=== PATIENT | male | born 1975 | race African-American/Black ===

== ENCOUNTER 2018-06-10 10:00 | Inpatient (IN) | payer MEDICAID ==
[~2018-06-10] VITALS: Ht 180.3 cm; Wt 121.3 kg
[2018-06-10] MEDS ORDERED: ONDANSETRON HCL 4 MG/2 ML VIAL IV ONE (10:15)
[2018-06-10 11:08] LABS: Basophils # (auto) 0.1 uL; Basophils % (auto) 1.1 % (0.0-2.0); Eosinophils # (auto) 0.3 uL; Eosinophils % (auto) 4.9 % (0.0-7.0); Hematocrit 26.6 % (41.0-53.0); Hemoglobin 8.7 g/dL (13.5-17.5); Lymphocytes # (auto) 0.8 uL; Lymphocytes % (auto) 13.8 % (10.0-50.0); Mean Corpuscular Hemoglobin 26.8 pg (28.0-32.0); Mean Corpuscular Hgb Conc. 32.7 g/dL (32.0-36.0); Mean Corpuscular Volume 82.1 fL (80.0-100.0); Monocytes # (auto) 0.7 uL; Monocytes % (auto) 11.5 % (0.0-12.0); Neutrophils % (auto) 68.7 % (37.0-80.0); Platelet Count (auto) 250 10^3/uL (140-450); Red Blood Cells 3.24 10^6/uL (4.5-5.90); Red Cell Distribution Width 13.6 % (11.8-14.3); White Blood Cell 5.9 10^3/uL (4.4-10.8)
[2018-06-10 11:24] LABS: Albumin 2.7 g/dL (3.4-5.0); Potassium 4.7 mmol/L (3.5-5.1)
[2018-06-10 11:29] LABS: Urine Bacteria FEW /hpf (None Seen); Urine Blood 1+ /uL (Negative); Urine Specific Gravity 1.005 (1.001-1.035); Urine WBC 2 /hpf (0 - 3)
[2018-06-10] MEDS ORDERED: cloNIDine HCL 0.1 MG TAB PO ONE (11:30)
[2018-06-10 11:32] LABS: Bilirubin, Total 0.3 mg/dL (0.2-1.0); Total Protein 6.9 g/dL (6.4-8.2)
[2018-06-10 11:36] LABS: Calcium 5.3 mg/dL (8.5-10.1)
[2018-06-10 11:37] LABS: BUN/Creatinine Ratio 6.3
[2018-06-10 11:41] LABS: Alcohol, Urine < 3.0 mg/dL (0-5); Amphetamine Screen, Urine NEGATIVE (NEGATIVE); Barbiturate Scree,Urine NEGATIVE (NEGATIVE); Benzodiazephine Screen, Urine NEGATIVE (NEGATIVE); Cannabinoid Screen, Urine NEGATIVE (NEGATIVE); Cocaine Screen, Urine NEGATIVE (NEGATIVE); Opiate Scree,Urine NEGATIVE (NEGATIVE); Phencyclidine Screen, Urine NEGATIVE (NEGATIVE)
[2018-06-10] MEDS ORDERED: ONDANSETRON HCL 4 MG/2 ML VIAL IV PRN (13:15)
[2018-06-10] MEDS ORDERED: DEXTROSE (50%) 50ML SYRG IV PRN (13:15)
[2018-06-10] MEDS ORDERED: MORPHINE SULF INJ 2 MG/ML SYRINGE 1ML IV PRN ×2 (13:15)
[2018-06-10] MEDS ORDERED: NITROGLYCERIN 0.4 MG SL TAB SL PRN (13:15)
[2018-06-10] MEDS ORDERED: LABETALOL HCL 5 MG/ML ML 20ML VIAL IV PRN (13:15)
[2018-06-10] MEDS ORDERED: TRIAMTERENE/HCTZ 37.5/25 MG CAP/TAB PO ONE ×2 (13:15→13:30)
[2018-06-10] MEDS ORDERED: METOPROLOL TARTRATE 25 MG TAB PO ONE ×2 (13:15→13:30)
[2018-06-10] MEDS ORDERED: ACETAMINOPHEN 325 MG TAB PO PRN (13:15)
[2018-06-10] MEDS ORDERED: DOCUSATE SOD 100 MG CAP PO PRN (13:15)
[2018-06-10] MEDS ORDERED: CALCIUM GLUC 4.65meq/50ml D5AE 50 ML IV ONE (13:15)
[2018-06-10] MEDS ORDERED: TEMAZEPAM 15 MG CAP PO PRN (13:15)
[2018-06-10] MEDS ORDERED: amLODIPine BESYLATE 5 MG TAB PO ONE ×2 (13:15→13:30)
[2018-06-10] MEDS ORDERED: HYDROcodone-ACET 5/325MG TAB PO PRN (13:15)
[2018-06-10] MEDS ORDERED: MULTIPLE VITAMIN TAB PO ONE (13:30)
[2018-06-10] MEDS ORDERED: cefTRIAXone 1GM/10ml IVPUSH 10 ML IV ONE (14:00)
[2018-06-10] MEDS: SODIUM CHLOR 0.9% PF (SALINE LOCK) 10ML VIAL/SYR IV SCH ×2 (14:18→22:02)
[2018-06-10 16:20] LABS: Protein, Urine 370.3 mg/dL (0.0-11.9)
[2018-06-10] MEDS: cloNIDine HCL 0.1 MG TAB PO PRN ×2 (16:48→20:40)
[2018-06-10] MEDS: ACCU-CHEK COMFORT CURVE STRIP VI SCH ×2 (17:31→22:02)
[2018-06-10] MEDS: InsuLIN REG 1unit/0.01ml Soln (100units/ml) SC SCH ×2 (17:31→22:02)
[2018-06-10] MEDS: Glucerna Carbsteady SHAKE Vanilla 8oz PO SCH (18:00)
[2018-06-10 18:04] VITALS: BP 199/101
[2018-06-10 19:19] LABS: Albumin 2.7 g/dL (3.4-5.0); Potassium 4.6 mmol/L (3.5-5.1)
[2018-06-10 19:30] LABS: BUN/Creatinine Ratio 6.4; Bilirubin, Total 0.3 mg/dL (0.2-1.0); Total Protein 6.9 g/dL (6.4-8.2)
[2018-06-10 19:39] LABS: Calcium 5.6 mg/dL (8.5-10.1)
[2018-06-10 21:43] VITALS: BP 167/85
[2018-06-10] MEDS: METOPROLOL TARTRATE 25 MG TAB PO SCH (22:02)
[2018-06-11] VITALS (8 sets, daily range): BP systolic 135–208; BP diastolic 71–91
[2018-06-11] MEDS: cloNIDine HCL 0.1 MG TAB PO PRN ×2 (05:04→16:55)
[2018-06-11] MEDS: SODIUM CHLOR 0.9% PF (SALINE LOCK) 10ML VIAL/SYR IV SCH ×3 (06:09→22:04)
[2018-06-11] MEDS: InsuLIN REG 1unit/0.01ml Soln (100units/ml) SC SCH ×4 (06:44→22:05)
[2018-06-11] MEDS: ACCU-CHEK COMFORT CURVE STRIP VI SCH ×4 (06:44→22:04)
[2018-06-11] MEDS: Glucerna Carbsteady SHAKE Vanilla 8oz PO SCH ×3 (08:06→18:12)
[2018-06-11 09:58] LABS: Basophils # (auto) 0 uL; Eosinophils # (auto) 0.2 uL; Hemoglobin 7.9 g/dL (13.5-17.5); Monocytes # (auto) 0.4 uL; Nucleated Red Blood Cells % 0.1 %; Red Cell Distribution Width 13.4 % (11.8-14.3)
[2018-06-11] MEDS ORDERED: amLODIPine BESYLATE 5 MG TAB PO SCH (10:00)
[2018-06-11] MEDS ORDERED: TRIAMTERENE/HCTZ 37.5/25 MG CAP/TAB PO SCH (10:00)
[2018-06-11 10:01] LABS: Basophils % (auto) 0.7 % (0.0-2.0); Eosinophils % (auto) 4.8 % (0.0-7.0); Hematocrit 23.6 % (41.0-53.0); Lymphocytes % (auto) 19.9 % (10.0-50.0); Mean Corpuscular Hemoglobin 26.6 pg (28.0-32.0); Mean Corpuscular Hgb Conc. 33.3 g/dL (32.0-36.0); Mean Corpuscular Volume 79.8 fL (80.0-100.0); Monocytes % (auto) 9.1 % (0.0-12.0); Neutrophils # (auto) 3.1 uL; Neutrophils % (auto) 65.5 % (37.0-80.0); Platelet Count (auto) 230 10^3/uL (140-450); Red Blood Cells 2.95 10^6/uL (4.5-5.90); White Blood Cell 4.8 10^3/uL (4.4-10.8)
[2018-06-11] MEDS: METOPROLOL TARTRATE 25 MG TAB PO SCH ×2 (10:04→21:33)
[2018-06-11] MEDS: MULTIPLE VITAMIN TAB PO SCH (10:07)
[2018-06-11] MEDS: cefTRIAXone 1GM/10ml IVPUSH 10 ML IV SCH (10:08)
[2018-06-11 10:17] LABS: Albumin 2.5 g/dL (3.4-5.0); BUN/Creatinine Ratio 6.2; Bilirubin, Total 0.3 mg/dL (0.2-1.0); Potassium 4.6 mmol/L (3.5-5.1); Total Protein 6.3 g/dL (6.4-8.2)
[2018-06-11 10:22] LABS: Calcium 5.6 mg/dL (8.5-10.1)
[2018-06-11] MEDS ORDERED: EPOETIN ALFA 10,000 UNIT/1 ML VIAL IV ONE (15:45)
[2018-06-11] MEDS: hydrALAZINE HCL 20 MG/ML VL IV PRN (19:00)
[2018-06-12] VITALS (8 sets, daily range): BP systolic 144–163; BP diastolic 69–79
[2018-06-12] MEDS: cloNIDine HCL 0.1 MG TAB PO PRN (00:20)
[2018-06-12] MEDS: SODIUM CHLOR 0.9% PF (SALINE LOCK) 10ML VIAL/SYR IV SCH ×3 (06:27→21:26)
[2018-06-12] MEDS: ACCU-CHEK COMFORT CURVE STRIP VI SCH ×4 (06:27→21:27)
[2018-06-12] MEDS: InsuLIN REG 1unit/0.01ml Soln (100units/ml) SC SCH ×4 (06:28→21:46)
[2018-06-12] MEDS: cefTRIAXone 1GM/10ml IVPUSH 10 ML IV SCH (09:08)
[2018-06-12] MEDS: METOPROLOL TARTRATE 25 MG TAB PO SCH ×2 (09:09→21:27)
[2018-06-12] MEDS: NIFEdipine ER 30 MG TAB PO SCH (09:09)
[2018-06-12] MEDS: MULTIPLE VITAMIN TAB PO SCH (09:09)
[2018-06-12] MEDS: Glucerna Carbsteady SHAKE Vanilla 8oz PO SCH ×3 (09:10→17:51)
[2018-06-12 10:38] LABS: Basophils # (auto) 0 uL; Basophils % (auto) 0.6 % (0.0-2.0); Hematocrit 23.2 % (41.0-53.0); Lymphocytes # (auto) 0.7 uL; Monocytes # (auto) 0.5 uL; Neutrophils # (auto) 3.3 uL; Red Blood Cells 2.92 10^6/uL (4.5-5.90); Red Cell Distribution Width 13.4 % (11.8-14.3); White Blood Cell 4.7 10^3/uL (4.4-10.8)
[2018-06-12 10:40] LABS: Eosinophils # (auto) 0.1 uL; Eosinophils % (auto) 3.2 % (0.0-7.0); Hemoglobin 7.9 g/dL (13.5-17.5); Lymphocytes % (auto) 14.7 % (10.0-50.0); Mean Corpuscular Hemoglobin 27.2 pg (28.0-32.0); Mean Corpuscular Hgb Conc. 34.2 g/dL (32.0-36.0); Mean Corpuscular Volume 79.6 fL (80.0-100.0); Monocytes % (auto) 10.8 % (0.0-12.0); Neutrophils % (auto) 70.7 % (37.0-80.0); Platelet Count (auto) 214 10^3/uL (140-450)
[2018-06-12] MEDS: hydrALAZINE HCL 20 MG/ML VL IV PRN (12:03)
[2018-06-12 12:43] LABS: Calcium 6.5 mg/dL (8.5-10.1); Potassium 4.3 mmol/L (3.5-5.1)
[2018-06-12 12:52] LABS: BUN/Creatinine Ratio 5.6
[2018-06-13 05:00] VITALS: BP 159/73
[2018-06-13] MEDS: ACCU-CHEK COMFORT CURVE STRIP VI SCH (06:09)
[2018-06-13] MEDS: SODIUM CHLOR 0.9% PF (SALINE LOCK) 10ML VIAL/SYR IV SCH (06:09)
[2018-06-13] MEDS: InsuLIN REG 1unit/0.01ml Soln (100units/ml) SC SCH (06:09)
[2018-06-13 08:30] VITALS: BP 160/71
[2018-06-13 09:58] LABS: Hepatitis B Surface Antigen Negative (Negative); Hepatitis C Antibody Negative (Negative)
[2018-06-13] MEDS ORDERED: EPOETIN ALFA 10,000 UNIT/1 ML VIAL IV ONE (10:00)
[2018-06-13] MEDS ORDERED: SODIUM CHL 0.9% 1000 ML BAG XX ONE (10:00)
[2018-06-13] MEDS: MULTIPLE VITAMIN TAB PO SCH (10:01)
[2018-06-13] MEDS: METOPROLOL TARTRATE 25 MG TAB PO SCH (10:02)
[2018-06-13] MEDS: NIFEdipine ER 30 MG TAB PO SCH (10:03)
[2018-06-13] MEDS: Glucerna Carbsteady SHAKE Vanilla 8oz PO SCH (10:09)
[2018-06-13 12:42] VITALS: BP 151/84
[2018-06-13 14:13] VITALS: BP 151/84
== END 2018-06-13 15:55 | disposition home or self-care (01) | DRG 469 ==
LOC: ER 10:00 → EDBD 10:00 → TELE 10:01 → TELE-WESTW 18:29
PROVIDERS: ADMIT Internal Medicine; ATTEND Internal Medicine Pulmonary Disease
PROC: 5A1D70Z Performance of Urinary Filtration, Intermittent, Less than 6 Hours Per Day (ICD-10-PCS; principal; 2018-06-11)
DX: N17.9 Acute kidney failure, unspecified (principal); E11.21 Type 2 diabetes mellitus with diabetic nephropathy; E44.0 Moderate protein-calorie malnutrition; I13.11 Hypertensive heart and chronic kidney disease without heart failure, with stage 5 chronic kidney disease, or end stage renal disease; E83.51 Hypocalcemia; K52.9 Noninfective gastroenteritis and colitis, unspecified; E11.22 Type 2 diabetes mellitus with diabetic chronic kidney disease; E87.1 Hypo-osmolality and hyponatremia; N39.0 Urinary tract infection, site not specified; N18.6 End stage renal disease; E66.9 Obesity, unspecified; D63.1 Anemia in chronic kidney disease; Z68.37 Body mass index [BMI] 37.0-37.9, adult; Z83.3 Family history of diabetes mellitus; Z91.14 Patient's other noncompliance with medication regimen; Z91.15 Patient's noncompliance with renal dialysis
CPT/HCPCS: 36415; 71046; 74176; 76775; 80048; 80053; 80307; 81001; 82150; 82570; 82962; 83036; 83690; 83880; 83970; 84156; 84300; 84443; 84484; 85025; 86803; 87086; 87340; 90935; 93005; 93306; 96365; 96375; 99291; J0610; J0696; J0885; J1815; J2405

== ENCOUNTER 2018-11-19 02:21 | Emergency (ER) | payer MEDICAID ==
[~2018-11-19] VITALS: Ht 180.3 cm; Wt 96.6 kg
[2018-11-19] MEDS ORDERED: cloNIDine HCL 0.1 MG TAB PO ONE (02:45)
[2018-11-19 04:12] LABS: Basophils # (auto) 0 uL; Basophils % (auto) 0.7 % (0.0-2.0); Eosinophils # (auto) 0.1 uL; Eosinophils % (auto) 5.4 % (0.0-7.0); Hematocrit 28.8 % (41.0-53.0); Hemoglobin 9.5 g/dL (13.5-17.5); Lymphocytes # (auto) 0.5 uL; Lymphocytes % (auto) 17.5 % (10.0-50.0); Mean Corpuscular Hgb Conc. 33.1 g/dL (32.0-36.0); Mean Corpuscular Volume 84.6 fL (80.0-100.0); Monocytes # (auto) 0.4 uL; Monocytes % (auto) 15.3 % (0.0-12.0); Neutrophils # (auto) 1.7 uL; Neutrophils % (auto) 61.1 % (37.0-80.0); Nucleated Red Blood Cells % 0.1 %; Platelet Count (auto) 238 10^3/uL (140-450); White Blood Cell 2.7 10^3/uL (4.4-10.8)
[2018-11-19 04:31] LABS: INR 0.98 (0.9-1.15); Partial Thromboplastin Time 26.5 sec (23.78-33.04); Prothrombin Time 10.5 sec (9.27-12.13)
[2018-11-19 04:47] LABS: Albumin 3.4 g/dL (3.4-5.0); BUN/Creatinine Ratio 2.4; Calcium 8.6 mg/dL (8.5-10.1); Magnesium 2.8 mg/dL (1.6-2.6); Potassium 4.5 mmol/L (3.5-5.1)
[2018-11-19 04:52] LABS: Bilirubin, Total 0.4 mg/dL (0.2-1.0); Total Protein 7.4 g/dL (6.4-8.2)
[2018-11-19 06:58] VITALS: BP 197/93
== END 2018-11-19 09:26 | disposition left against medical advice (07) ==
LOC: ER 02:22
DX: E11.22 Type 2 diabetes mellitus with diabetic chronic kidney disease (principal); I12.0 Hypertensive chronic kidney disease with stage 5 chronic kidney disease or end stage renal disease; N18.6 End stage renal disease; Z99.2 Dependence on renal dialysis; F17.210 Nicotine dependence, cigarettes, uncomplicated
CPT/HCPCS: 36415; 71046; 80053; 83735; 83880; 84484; 85025; 85379; 85610; 85730; 93005

== ENCOUNTER 2019-08-07 07:45 | Inpatient (IN) | payer MEDICAID ==
[~2019-08-07] VITALS: Ht 180.3 cm; Wt 82.6 kg
[2019-08-07 08:14] LABS: Basophils # (auto) 0 uL; Basophils % (auto) 0.6 % (0.0-2.0); Eosinophils # (auto) 0.1 uL; Eosinophils % (auto) 2.5 % (0.0-7.0); Hematocrit 25.8 % (41.0-53.0); Hemoglobin 8.6 g/dL (13.5-17.5); Lymphocytes # (auto) 0.6 uL; Lymphocytes % (auto) 13.6 % (10.0-50.0); Mean Corpuscular Hemoglobin 29.6 pg (28.0-32.0); Mean Corpuscular Hgb Conc. 33.5 g/dL (32.0-36.0); Mean Corpuscular Volume 88.4 fL (80.0-100.0); Monocytes # (auto) 0.4 uL; Monocytes % (auto) 9.4 % (0.0-12.0); Neutrophils # (auto) 3.5 uL; Neutrophils % (auto) 73.9 % (37.0-80.0); Nucleated Red Blood Cells % 0.1 %; Platelet Count (auto) 192 10^3/uL (140-450); Red Blood Cells 2.92 10^6/uL (4.5-5.90); Red Cell Distribution Width 15.4 % (11.8-14.3); White Blood Cell 4.7 10^3/uL (4.4-10.8)
[2019-08-07 08:24] LABS: Albumin 3.8 g/dL (3.4-5.0); Calcium 8.3 mg/dL (8.5-10.1)
[2019-08-07 08:29] LABS: BUN/Creatinine Ratio 5.1; Bilirubin, Total 0.5 mg/dL (0.2-1.0); Total Protein 7.6 g/dL (6.4-8.2)
[2019-08-07] MEDS ORDERED: cloNIDine HCL 0.1 MG TAB PO ONE (08:30)
[2019-08-07 08:37] LABS: Potassium 6.5 mmol/L (3.5-5.1)
[2019-08-07] MEDS ORDERED: ALBUTEROL SULF 2.5 MG/0.5ML(0.5%) NEB SOLN HHN ONE (08:45)
[2019-08-07] MEDS ORDERED: SODIUM BICARBONATE 8.4 % INJ 50ML VIAL IV ONE (08:45)
[2019-08-07] MEDS ORDERED: CALCIUM GLUC 4.65meq/50ml D5AE 50 ML IV ONE (08:45)
[2019-08-07] MEDS ORDERED: SODIUM CHL 0.9% 1000 ML BAG XX ONE (09:45)
[2019-08-07] MEDS ORDERED: PROMETHAZINE HCL 25 MG/ML 1ML IV PRN (10:00)
[2019-08-07] MEDS ORDERED: MORPHINE SULF INJ 2 MG/ML SYRINGE 1ML IV PRN (10:00)
[2019-08-07] MEDS ORDERED: traMADol HCL 50 MG TAB PO PRN (10:00)
[2019-08-07] MEDS ORDERED: ASPirin 81 mg TAB PO SCH (10:00)
[2019-08-07] MEDS ORDERED: DEXTROSE (50%) 50ML SYRG IV PRN (10:00)
[2019-08-07] MEDS ORDERED: LACTULOSE 20Gm/30ML SOLN PO PRN (10:00)
[2019-08-07] MEDS ORDERED: ENOXAPARIN SOD 30 MG/0.3 ML SYRINGE SC SCH (10:00)
[2019-08-07] MEDS ORDERED: NITROGLYCERIN 0.4 MG SL TAB SL PRN (10:00)
[2019-08-07] MEDS ORDERED: CARVEDILOL 3.125 MG TAB PO SCH (10:00)
[2019-08-07] MEDS ORDERED: PANTOPRAZOLE 40 MG TAB PO SCH (10:00)
[2019-08-07] MEDS ORDERED: TEMAZEPAM 15 MG CAP PO PRN (10:00)
[2019-08-07] MEDS ORDERED: NITROGLYCERIN 0.2MG/HR TOPICAL PATCH TD SCH (10:00)
[2019-08-07] MEDS ORDERED: ACETAMINOPHEN 500 MG TAB PO PRN (10:00)
[2019-08-07] MEDS ORDERED: FUROSEMIDE 40 MG/4 ML VIAL IV SCH (10:00)
[2019-08-07] MEDS ORDERED: hydrALAZINE HCL 20 MG/ML VL IV PRN (10:30)
[2019-08-07] MEDS ORDERED: ACCU-CHEK COMFORT CURVE STRIP VI SCH (11:30)
[2019-08-07] MEDS ORDERED: InsuLIN REG 1unit/0.01ml Soln (100units/ml) SC SCH (11:30)
[2019-08-07 14:01] VITALS: BP 207/101
[2019-08-07] MEDS ORDERED: EPOETIN ALFA 4,000 UNIT/ML VL SC ONE (21:00)
== END 2019-08-07 15:08 | disposition left against medical advice (07) | DRG 190 ==
LOC: EDBD 07:45 → ER 07:55 → TELE 07:56
PROVIDERS: ADMIT Internal Medicine; ATTEND Internal Medicine
PROC: 5A1D70Z Performance of Urinary Filtration, Intermittent, Less than 6 Hours Per Day (ICD-10-PCS; principal; 2019-08-07)
DX: I21.4 Non-ST elevation (NSTEMI) myocardial infarction (principal); E11.22 Type 2 diabetes mellitus with diabetic chronic kidney disease; E87.70 Fluid overload, unspecified; E87.5 Hyperkalemia; I12.0 Hypertensive chronic kidney disease with stage 5 chronic kidney disease or end stage renal disease; D63.1 Anemia in chronic kidney disease; I16.0 Hypertensive urgency; E87.8 Other disorders of electrolyte and fluid balance, not elsewhere classified; N18.6 End stage renal disease; F17.210 Nicotine dependence, cigarettes, uncomplicated; Z82.49 Family history of ischemic heart disease and other diseases of the circulatory system; Z91.19 Patient's noncompliance with other medical treatment and regimen; Z83.3 Family history of diabetes mellitus; Z99.2 Dependence on renal dialysis; Z79.84 Long term (current) use of oral hypoglycemic drugs
CPT/HCPCS: 36415; 71045; 80053; 82550; 83036; 83880; 84484; 85025; 85652; 90935; 93005; 94644; G0378; J0610; J1642

== ENCOUNTER 2019-08-11 03:52 | Inpatient (IN) | payer MEDICAID ==
[~2019-08-11] VITALS: Ht 188 cm; Wt 81.4 kg
[2019-08-11 05:48] LABS: Basophils # (auto) 0 uL; Basophils % (auto) 0.4 % (0.0-2.0); Eosinophils # (auto) 0.2 uL; Eosinophils % (auto) 2.5 % (0.0-7.0); Hematocrit 23.5 % (41.0-53.0); Hemoglobin 7.9 g/dL (13.5-17.5); Lymphocytes # (auto) 0.7 uL; Lymphocytes % (auto) 10.7 % (10.0-50.0); Mean Corpuscular Hemoglobin 30.1 pg (28.0-32.0); Mean Corpuscular Hgb Conc. 33.5 g/dL (32.0-36.0); Mean Corpuscular Volume 89.8 fL (80.0-100.0); Monocytes # (auto) 0.5 uL; Monocytes % (auto) 7.2 % (0.0-12.0); Neutrophils % (auto) 79.2 % (37.0-80.0); Nucleated Red Blood Cells % 0.1 %; Platelet Count (auto) 171 10^3/uL (140-450); Red Blood Cells 2.62 10^6/uL (4.5-5.90); Red Cell Distribution Width 15.7 % (11.8-14.3); White Blood Cell 6.3 10^3/uL (4.4-10.8)
[2019-08-11 06:03] LABS: INR 1.01 (0.9-1.15); Partial Thromboplastin Time 27.1 sec (23.64-32.05)
[2019-08-11 06:14] LABS: Albumin 3.6 g/dL (3.4-5.0); Calcium 7.7 mg/dL (8.5-10.1)
[2019-08-11 06:24] LABS: Bilirubin, Total 0.5 mg/dL (0.2-1.0); Total Protein 7.3 g/dL (6.4-8.2)
[2019-08-11 06:25] LABS: BUN/Creatinine Ratio 5.1
[2019-08-11 06:27] LABS: Potassium 5.8 mmol/L (3.5-5.1)
[2019-08-11] MEDS ORDERED: ONDANSETRON HCL 4 MG/2 ML VIAL IV PRN (07:00)
[2019-08-11] MEDS ORDERED: ACETAMINOPHEN 325 MG TAB PO PRN (07:00)
[2019-08-11] MEDS ORDERED: DEXTROSE (50%) 50ML SYRG IV PRN (07:00)
[2019-08-11] MEDS ORDERED: DOCUSATE SOD 100 MG CAP PO PRN (07:00)
[2019-08-11] MEDS ORDERED: HYDROcodone-ACET 5/325MG TAB PO PRN (07:00)
[2019-08-11] MEDS ORDERED: cloNIDine HCL 0.1 MG TAB PO ONE (07:30)
[2019-08-11] MEDS: ACCU-CHEK COMFORT CURVE STRIP VI SCH ×4 (08:09→20:00)
[2019-08-11] MEDS: InsuLIN REG 1unit/0.01ml Soln (100units/ml) SC SCH ×4 (08:10→20:00)
[2019-08-11] MEDS ORDERED: SODIUM CHL 0.9% 1000 ML BAG XX ONE (10:00)
[2019-08-11] MEDS: CARVEDILOL 12.5 MG TAB PO SCH ×2 (10:00→21:54)
[2019-08-11 12:00] VITALS: BP 199/99
[2019-08-11 14:12] VITALS: BP 214/99
[2019-08-11] MEDS: LABETALOL HCL 5 MG/ML ML 20ML VIAL IV PRN (14:18)
[2019-08-11] MEDS ORDERED: amLODIPine BESYLATE 5 MG TAB PO ONE (14:30)
[2019-08-11] MEDS: cloNIDine HCL 0.1 MG TAB PO SCH ×3 (16:35→22:00)
[2019-08-11 17:00] VITALS: BP 156/74
[2019-08-11 21:00] VITALS: BP 179/80
[2019-08-11] MEDS ORDERED: EPOETIN ALFA 10,000 UNIT/1 ML VIAL SC ONE (21:00)
[2019-08-12] MEDS: ACCU-CHEK COMFORT CURVE STRIP VI SCH ×6 (00:20→19:53)
[2019-08-12] MEDS: InsuLIN REG 1unit/0.01ml Soln (100units/ml) SC SCH ×6 (04:00→19:53)
[2019-08-12 04:30] VITALS: BP 186/86
[2019-08-12] MEDS: cloNIDine HCL 0.1 MG TAB PO SCH ×3 (05:11→21:48)
[2019-08-12 07:32] LABS: Basophils # (auto) 0 uL; Eosinophils # (auto) 0.1 uL; Lymphocytes # (auto) 0.6 uL; Mean Corpuscular Hemoglobin 29.7 pg (28.0-32.0); Mean Corpuscular Hgb Conc. 33.4 g/dL (32.0-36.0); Monocytes # (auto) 0.4 uL; Red Blood Cells 2.81 10^6/uL (4.5-5.90); White Blood Cell 4.2 10^3/uL (4.4-10.8)
[2019-08-12 07:34] LABS: Basophils % (auto) 0.9 % (0.0-2.0); Eosinophils % (auto) 3.2 % (0.0-7.0); Hemoglobin 8.4 g/dL (13.5-17.5); Lymphocytes % (auto) 15.2 % (10.0-50.0); Monocytes % (auto) 9.8 % (0.0-12.0); Neutrophils % (auto) 70.9 % (37.0-80.0); Nucleated Red Blood Cells % 0.1 %; Platelet Count (auto) 176 10^3/uL (140-450); Red Cell Distribution Width 15.3 % (11.8-14.3)
[2019-08-12 07:50] LABS: BUN/Creatinine Ratio 4.7; Calcium 7.8 mg/dL (8.5-10.1)
[2019-08-12 07:52] LABS: Potassium 5.7 mmol/L (3.5-5.1)
[2019-08-12 08:00] VITALS: BP 190/88
--- NOTE | 2019-08-12 08:05 | NUR ---
DR LOZANO PAGED FOR CRITICAL VALUES OF POTASSIUM 5.7 AND CREATININE OF 14.8. INFORMED THAT I WOULD NEED TO RE-PAGE THE [facility] AT 9:00 AM BY PBX. WILL RE-PAGE AT 9:00 AM.
[2019-08-12 08:30] VITALS: BP 190/88
--- NOTE | 2019-08-12 08:33 | NUR ---
DR REAVES AT THE NURSING STATION. INFORMED HIM ABOUT THE CRITICAL VALUES ON THE PREVIOUS NOTE. HE INFORMED ME THAT HE WOULD WRITE ORDERS
--- NOTE | 2019-08-12 08:44 | NUR ---
PATIENT WAS TRANSFERRED TO [facility] FOR FURTHER CARE THIS WAS PREVIOUSLY THEIR PATIENT. CONTACTED [facility] WHO WAS ALREADY AWARE. THEY ARE ESTABLISHING PROVIDER AND WILL CALL ME BACK FOR CRITICAL VALUES
[2019-08-12] MEDS ORDERED: CALCIUM GLUC 4.65meq/50ml D5AE 50 ML IV ONE (08:45)
[2019-08-12] MEDS ORDERED: InsuLIN REG 1unit/0.01ml Soln (100units/ml) IV ONE (08:45)
[2019-08-12] MEDS ORDERED: SODIUM BICARBONATE 8.4 % INJ 50ML VIAL IV ONE (08:45)
[2019-08-12] MEDS ORDERED: DEXTROSE (50%) 50ML SYRG IV ONE (08:45)
[2019-08-12] MEDS: amLODIPine BESYLATE 5 MG TAB PO SCH (09:45)
[2019-08-12] MEDS: CARVEDILOL 12.5 MG TAB PO SCH ×2 (09:45→21:48)
[2019-08-12] MEDS ORDERED: amLODIPine BESYLATE 5 MG TAB PO SCH (10:00)
[2019-08-12] MEDS: LABETALOL HCL 5 MG/ML ML 20ML VIAL IV PRN (12:14)
[2019-08-12 12:30] VITALS: BP 168/72
[2019-08-12] MEDS ORDERED: SODIUM ZIRCONIUM CYCL 10 GM PAK PO ONE (16:30)
[2019-08-12 16:56] VITALS: BP 158/85
[2019-08-12 18:26] LABS: BUN/Creatinine Ratio 5.2; Calcium 7.7 mg/dL (8.5-10.1)
[2019-08-12 18:31] LABS: Potassium 5.8 mmol/L (3.5-5.1)
--- NOTE | 2019-08-12 18:33 | NUR ---
CRITICAL VALUES OF POTASSIUM AND CREATININE RECEIVED. DR LOZANO PAGED TO REPORT RESULTS. WAITING FOR RETURN CALL FROM
[2019-08-12 22:00] VITALS: BP 160/81
[2019-08-13] MEDS: InsuLIN REG 1unit/0.01ml Soln (100units/ml) SC SCH ×3 (04:00→08:00)
[2019-08-13] MEDS: ACCU-CHEK COMFORT CURVE STRIP VI SCH ×3 (04:00→08:11)
[2019-08-13] MEDS: cloNIDine HCL 0.1 MG TAB PO SCH (04:30)
[2019-08-13 05:00] VITALS: BP 186/82
[2019-08-13 05:54] LABS: Basophils # (auto) 0 uL; Basophils % (auto) 0.8 % (0.0-2.0); Eosinophils # (auto) 0.1 uL; Hematocrit 22.7 % (41.0-53.0); Hemoglobin 7.7 g/dL (13.5-17.5); Lymphocytes # (auto) 0.7 uL; Mean Corpuscular Hemoglobin 29.9 pg (28.0-32.0); Mean Corpuscular Hgb Conc. 33.9 g/dL (32.0-36.0); Mean Corpuscular Volume 88.1 fL (80.0-100.0); Monocytes # (auto) 0.5 uL; Monocytes % (auto) 13.8 % (0.0-12.0); Neutrophils # (auto) 2.1 uL; Neutrophils % (auto) 61.4 % (37.0-80.0); Platelet Count (auto) 160 10^3/uL (140-450); Red Blood Cells 2.57 10^6/uL (4.5-5.90); Red Cell Distribution Width 15.2 % (11.8-14.3); White Blood Cell 3.5 10^3/uL (4.4-10.8)
[2019-08-13 06:18] LABS: Calcium 7.5 mg/dL (8.5-10.1); Potassium 5.4 mmol/L (3.5-5.1)
[2019-08-13 06:20] LABS: BUN/Creatinine Ratio 5.3
[2019-08-13] MEDS ORDERED: SODIUM CHL 0.9% 1000 ML BAG XX ONE (07:00)
[2019-08-13 08:00] VITALS: BP 194/85
[2019-08-13 09:00] VITALS: BP 194/85
[2019-08-13] MEDS ORDERED: SODIUM ZIRCONIUM CYCL 10 GM PAK PO ONE (09:00)
[2019-08-13] MEDS: CARVEDILOL 12.5 MG TAB PO SCH (11:09)
[2019-08-13] MEDS: amLODIPine BESYLATE 5 MG TAB PO SCH (11:10)
--- NOTE | 2019-08-13 12:37 | NUR ---
PATIENT DISCHARGED HOME. ALL IV ACCESS DISCONTINUED. TELEMETRY REMOVED AND RETURNED TO TELEMETRY DEPARTMENT. ALL DISCHARGE INSTRUCTIONS GIVEN. ALL DISCHARGE PAPERWORK SIGNED
[2019-08-13] MEDS ORDERED: EPOETIN ALFA 4,000 UNIT/ML VL SC ONE (21:00)
== END 2019-08-13 13:11 | disposition home or self-care (01) | DRG 194 ==
LOC: EDBD 03:52 → ER 03:53 → TELE 03:54 → TELE-CENTR 09:51
PROVIDERS: ADMIT Hospitalist; ATTEND Internal Medicine
PROC: 5A1D70Z Performance of Urinary Filtration, Intermittent, Less than 6 Hours Per Day (ICD-10-PCS; 2019-08-11)
PROC: 5A1D70Z Performance of Urinary Filtration, Intermittent, Less than 6 Hours Per Day (ICD-10-PCS; principal; 2019-08-13)
DX: I13.2 Hypertensive heart and chronic kidney disease with heart failure and with stage 5 chronic kidney disease, or end stage renal disease (principal); I21.4 Non-ST elevation (NSTEMI) myocardial infarction; E11.21 Type 2 diabetes mellitus with diabetic nephropathy; E87.5 Hyperkalemia; I16.0 Hypertensive urgency; I50.31 Acute diastolic (congestive) heart failure; N18.6 End stage renal disease; E11.22 Type 2 diabetes mellitus with diabetic chronic kidney disease; D63.1 Anemia in chronic kidney disease; R06.03 Acute respiratory distress; F17.210 Nicotine dependence, cigarettes, uncomplicated; Z82.49 Family history of ischemic heart disease and other diseases of the circulatory system; Z79.899 Other long term (current) drug therapy; Z91.19 Patient's noncompliance with other medical treatment and regimen; Z99.2 Dependence on renal dialysis; Z83.3 Family history of diabetes mellitus; Z91.15 Patient's noncompliance with renal dialysis
CPT/HCPCS: 36415; 71045; 80048; 80053; 82306; 82962; 83036; 83735; 83880; 83970; 84100; 84484; 85025; 85610; 85730; 90935; 93005; 96374; G0378; J0610; J0885; J1642; J1815

== ENCOUNTER 2020-10-23 18:25 | Emergency (ER) | payer MEDICAID ==
[~2020-10-23] VITALS: Ht 180.3 cm; Wt 86.2 kg
[2020-10-23 20:37] VITALS: BP 166/75
[2020-10-23 21:11] LABS: Basophils # (auto) 0 10 ^3/uL (0-0.2); Basophils % (auto) 0.7 % (0.0-2.0); Eosinophils # (auto) 0.2 10 ^3/uL (0-0.8); Eosinophils % (auto) 3.6 % (0.0-7.0); Hematocrit 34.6 % (41.0-53.0); Hemoglobin 11.6 g/dL (13.5-17.5); Lymphocytes % (auto) 23.2 % (10.0-50.0); Mean Corpuscular Hemoglobin 29.5 pg (28.0-32.0); Mean Corpuscular Hgb Conc. 33.5 g/dL (32.0-36.0); Mean Corpuscular Volume 88.2 fL (80.0-100.0); Monocytes # (auto) 0.5 10 ^3/uL (0-1.3); Monocytes % (auto) 10.9 % (0.0-12.0); Neutrophils # (auto) 2.7 10 ^3/uL (1.6-8.6); Neutrophils % (auto) 61.6 % (37.0-80.0); Nucleated Red Blood Cells % 0.2 %; Platelet Count (auto) 198 10^3/uL (140-450); Red Blood Cells 3.93 10^6/uL (4.5-5.90); Red Cell Distribution Width 13.9 % (11.8-14.3); White Blood Cell 4.3 10^3/uL (4.4-10.8)
[2020-10-23 21:37] LABS: Albumin 3.5 g/dL (3.4-5.0); BUN/Creatinine Ratio 4.6; Bilirubin, Total 0.3 mg/dL (0.2-1.0); Calcium 8.3 mg/dL (8.5-10.1); Total Protein 8.2 g/dL (6.4-8.2)
[2020-10-23 21:54] LABS: Potassium 6.1 mmol/L (3.5-5.1)
== END 2020-10-24 00:24 | disposition left against medical advice (07) ==
LOC: ER 18:25
DX: R53.1 Weakness (principal); E11.22 Type 2 diabetes mellitus with diabetic chronic kidney disease; I12.0 Hypertensive chronic kidney disease with stage 5 chronic kidney disease or end stage renal disease; N18.6 End stage renal disease
CPT/HCPCS: 36415; 70450; 80053; 83735; 84484; 85025; 93005

== ENCOUNTER 2021-06-18 15:47 | Inpatient (IN) | payer MEDICAID ==
[~2021-06-18] VITALS: Ht 182.9 cm; Wt 68.0 kg
[2021-06-18 16:18] LABS: Basophils # (auto) 0 10 ^3/uL (0-0.2); Basophils % (auto) 0.3 % (0.0-2.0); Eosinophils # (auto) 0.1 10 ^3/uL (0-0.8); Eosinophils % (auto) 0.7 % (0.0-7.0); Hematocrit 42.1 % (41.0-53.0); Hemoglobin 13.5 g/dL (13.5-17.5); Lymphocytes # (auto) 0.6 10 ^3/uL (0.4-5.4); Lymphocytes % (auto) 8.3 % (10.0-50.0); Mean Corpuscular Hemoglobin 27.5 pg (28.0-32.0); Mean Corpuscular Hgb Conc. 32.2 g/dL (32.0-36.0); Mean Corpuscular Volume 85.6 fL (80.0-100.0); Monocytes # (auto) 0.6 10 ^3/uL (0-1.3); Monocytes % (auto) 8.5 % (0.0-12.0); Neutrophils # (auto) 6.2 10 ^3/uL (1.6-8.6); Neutrophils % (auto) 82.2 % (37.0-80.0); Red Blood Cells 4.92 10^6/uL (4.5-5.90); Red Cell Distribution Width 15.5 % (11.8-14.3); White Blood Cell 7.6 10^3/uL (4.4-10.8)
[2021-06-18] MEDS ORDERED: LABETALOL HCL 5 MG/ML 4ML SYRINGE IV ONE (16:30)
[2021-06-18 16:37] LABS: Albumin 3.1 g/dL (3.4-5.0); Calcium 8.1 mg/dL (8.5-10.1); Potassium 3.6 mmol/L (3.5-5.1)
[2021-06-18 16:42] LABS: Bilirubin, Total 0.6 mg/dL (0.2-1.0); Total Protein 7.2 g/dL (6.4-8.2)
[2021-06-18] MEDS ORDERED: DEXTROSE (50%) 50ML SYRG IV PRN (20:00)
[2021-06-18] MEDS ORDERED: LORazepam 2MG/ML-1ML VIAL IV PRN (20:00)
[2021-06-18] MEDS ORDERED: MORPHINE SULFATE INJECTION 2 MG/ML SYRG IV PRN (20:00)
[2021-06-18] MEDS ORDERED: hydrALAZINE HCL 25 MG TAB PO PRN (20:00)
[2021-06-18] MEDS ORDERED: NIFEdipine ER 30 MG TAB PO ONE (20:00)
[2021-06-18] MEDS ORDERED: NITROGLYCERIN 0.4 MG SL TAB SL PRN (20:00)
[2021-06-18] MEDS: ACCU-CHEK COMFORT CURVE STRIP VI SCH (21:56)
[2021-06-18] MEDS: InsuLIN REG 1unit/0.01ml Soln (100units/ml) SC SCH (21:56)
[2021-06-19] MEDS ORDERED: HYDROcodone-ACET 5/325MG TAB ONE (00:22)
[2021-06-19] MEDS: HYDROcodone-ACET 5/325MG TAB PO PRN ×2 (00:39→23:40)
[2021-06-19] MEDS ORDERED: LORazepam 2MG/ML-1ML VIAL IV ONE (05:15)
[2021-06-19] MEDS: ACCU-CHEK COMFORT CURVE STRIP VI SCH ×4 (06:41→21:54)
[2021-06-19] MEDS: InsuLIN REG 1unit/0.01ml Soln (100units/ml) SC SCH ×4 (06:41→21:57)
[2021-06-19 08:29] LABS: Calcium 7.4 mg/dL (8.5-10.1); Potassium 4.6 mmol/L (3.5-5.1)
[2021-06-19 08:34] LABS: BUN/Creatinine Ratio 3.9
[2021-06-19] MEDS: PANTOPRAZOLE 40 MG TAB PO SCH (10:48)
[2021-06-19] MEDS ORDERED: NIFEdipine ER 30 MG TAB PO ONE (11:15)
[2021-06-19] MEDS ORDERED: cloNIDine HCL 0.1 MG TAB PO PRN (11:15)
[2021-06-19] MEDS: hydrALAZINE HCL 25 MG TAB PO SCH ×2 (12:15→17:30)
[2021-06-19] MEDS: LABETALOL HCL 5 MG/ML 4ML SYRINGE IV PRN ×2 (15:26→21:15)
[2021-06-19] MEDS ORDERED: LORazepam 2MG/ML-1ML VIAL IV PRN (20:45)
[2021-06-20] MEDS: hydrALAZINE HCL 25 MG TAB PO SCH ×4 (00:05→12:12)
[2021-06-20] MEDS: LABETALOL HCL 5 MG/ML 4ML SYRINGE IV PRN ×2 (03:07→06:47)
[2021-06-20 05:09] LABS: Basophils # (auto) 0 10 ^3/uL (0-0.2); Basophils % (auto) 0.5 % (0.0-2.0); Eosinophils # (auto) 0.1 10 ^3/uL (0-0.8); Eosinophils % (auto) 2.2 % (0.0-7.0); Hematocrit 33.7 % (41.0-53.0); Hemoglobin 11.1 g/dL (13.5-17.5); Lymphocytes # (auto) 0.8 10 ^3/uL (0.4-5.4); Mean Corpuscular Hemoglobin 28.5 pg (28.0-32.0); Mean Corpuscular Hgb Conc. 32.9 g/dL (32.0-36.0); Mean Corpuscular Volume 86.8 fL (80.0-100.0); Monocytes # (auto) 0.5 10 ^3/uL (0-1.3); Monocytes % (auto) 8.1 % (0.0-12.0); Neutrophils % (auto) 77.2 % (37.0-80.0); Nucleated Red Blood Cells % 0.1 %; Red Blood Cells 3.88 10^6/uL (4.5-5.90); Red Cell Distribution Width 15.3 % (11.8-14.3); White Blood Cell 6.4 10^3/uL (4.4-10.8)
[2021-06-20 05:25] LABS: Calcium 7.2 mg/dL (8.5-10.1); Potassium 5.3 mmol/L (3.5-5.1)
[2021-06-20] MEDS: ACCU-CHEK COMFORT CURVE STRIP VI SCH ×2 (06:35→11:30)
[2021-06-20] MEDS: InsuLIN REG 1unit/0.01ml Soln (100units/ml) SC SCH ×2 (06:35→11:30)
[2021-06-20] MEDS ORDERED: SODIUM CHL 0.9% 1000 ML BAG XX ONE (07:00)
[2021-06-20] MEDS: PANTOPRAZOLE 40 MG TAB PO SCH (07:56)
[2021-06-20] MEDS ORDERED: NIFEdipine ER 30 MG TAB PO SCH (10:00)
[2021-06-20] MEDS: NIFEdipine ER 30 MG TAB PO SCH (10:00)
[2021-06-20] MEDS ORDERED: METOPROLOL SUCCINATE XL 50 MG TAB PO SCH (10:00)
[2021-06-20 12:08] VITALS: BP 168/90
== END 2021-06-20 12:27 | disposition left against medical advice (07) | DRG 199 ==
LOC: EDBD 15:47 → EDUNIT# 15:47 → ER 15:48 → TELE 19:54
PROVIDERS: ADMIT Nurse Practitioner Acute Care; ATTEND Internal Medicine Pulmonary Disease
PROC: 5A1D70Z Performance of Urinary Filtration, Intermittent, Less than 6 Hours Per Day (ICD-10-PCS; principal; 2021-06-20)
DX: I16.1 Hypertensive emergency (principal); I21.A1 Myocardial infarction type 2; G93.41 Metabolic encephalopathy; I27.20 Pulmonary hypertension, unspecified; D63.1 Anemia in chronic kidney disease; N18.6 End stage renal disease; R56.9 Unspecified convulsions; I13.2 Hypertensive heart and chronic kidney disease with heart failure and with stage 5 chronic kidney disease, or end stage renal disease; I50.32 Chronic diastolic (congestive) heart failure; Z20.822 Contact with and (suspected) exposure to COVID-19; E66.9 Obesity, unspecified; I16.0 Hypertensive urgency; E11.22 Type 2 diabetes mellitus with diabetic chronic kidney disease; M62.541 Muscle wasting and atrophy, not elsewhere classified, right hand; F12.90 Cannabis use, unspecified, uncomplicated; F17.210 Nicotine dependence, cigarettes, uncomplicated; Z99.2 Dependence on renal dialysis; Z91.15 Patient's noncompliance with renal dialysis; Z79.4 Long term (current) use of insulin; Z82.49 Family history of ischemic heart disease and other diseases of the circulatory system; Z83.3 Family history of diabetes mellitus
CPT/HCPCS: 36415; 70450; 70551; 71045; 80048; 80053; 82962; 83880; 84484; 85025; 87426; 93005; 93306; 96365; 96366; 96375; 96376; G0378; J1815; J3490

== ENCOUNTER 2021-09-30 05:29 | Emergency (ER) | payer MEDICAID ==
[~2021-09-30] VITALS: Ht 177.8 cm; Wt 36.3 kg
[2021-09-30] MEDS ORDERED: HYDROcodone-ACET 10/325MG TAB PO ONE (07:00)
[2021-09-30 08:49] LABS: Basophils # (auto) 0.1 10 ^3/uL (0-0.2); Basophils % (auto) 0.6 % (0.0-2.0); Eosinophils # (auto) 0.1 10 ^3/uL (0-0.8); Eosinophils % (auto) 0.7 % (0.0-7.0); Hematocrit 32.3 % (41.0-53.0); Hemoglobin 10.9 g/dL (13.5-17.5); Lymphocytes # (auto) 0.5 10 ^3/uL (0.4-5.4); Lymphocytes % (auto) 6.2 % (10.0-50.0); Mean Corpuscular Hemoglobin 30.2 pg (28.0-32.0); Mean Corpuscular Hgb Conc. 33.7 g/dL (32.0-36.0); Mean Corpuscular Volume 89.5 fL (80.0-100.0); Monocytes # (auto) 0.4 10 ^3/uL (0-1.3); Monocytes % (auto) 4.6 % (0.0-12.0); Neutrophils # (auto) 7.7 10 ^3/uL (1.6-8.6); Neutrophils % (auto) 87.9 % (37.0-80.0); Red Blood Cells 3.61 10^6/uL (4.5-5.90); Red Cell Distribution Width 19.1 % (11.8-14.3); White Blood Cell 8.7 10^3/uL (4.4-10.8)
[2021-09-30 09:00] LABS: Albumin 3.8 g/dL (3.4-5.0); Calcium 8.2 mg/dL (8.5-10.1); Potassium 5.2 mmol/L (3.5-5.1)
[2021-09-30 09:03] LABS: BUN/Creatinine Ratio 5.5; Bilirubin, Total 0.5 mg/dL (0.2-1.0); Total Protein 8.2 g/dL (6.4-8.2)
[2021-09-30 09:16] VITALS: BP 178/80
[2021-09-30] MEDS ORDERED: CALCIUM GLUC 1,000mg/50ml-NS 50 ML IV ONE (10:00)
[2021-09-30] MEDS ORDERED: ALBUTEROL SULF 2.5 MG/0.5ML(0.5%) NEB SOLN NEB ONE (10:00)
[2021-09-30] MEDS ORDERED: SODIUM ZIRCONIUM CYCL 10 GM PAK PO ONE (10:00)
[2021-09-30] MEDS ORDERED: SODIUM BICARBONATE 8.4% INJ 50ML SYRINGE IV ONE (10:00)
[2021-09-30] MEDS ORDERED: FUROSEMIDE 20 MG/2 ML VIAL IV ONE (10:00)
== END 2021-09-30 10:06 | disposition left against medical advice (07) ==
LOC: ER 05:29 → EDBD 05:29 → ER 10:06
DX: R51.9 Headache, unspecified (principal); D64.9 Anemia, unspecified; E87.5 Hyperkalemia; I12.0 Hypertensive chronic kidney disease with stage 5 chronic kidney disease or end stage renal disease; E11.22 Type 2 diabetes mellitus with diabetic chronic kidney disease; N18.6 End stage renal disease; F17.210 Nicotine dependence, cigarettes, uncomplicated; Z99.2 Dependence on renal dialysis
CPT/HCPCS: 36415; 70450; 80053; 85025

== ENCOUNTER 2021-10-04 14:40 | Inpatient (IN) | payer MEDICAID ==
[~2021-10-04] VITALS: Ht 180.3 cm; Wt 77.1 kg
[2021-10-04 15:45] LABS: Basophils # (auto) 0 10 ^3/uL (0-0.2); Basophils % (auto) 0.4 % (0.0-2.0); Eosinophils # (auto) 0.1 10 ^3/uL (0-0.8); Eosinophils % (auto) 1.1 % (0.0-7.0); Hematocrit 30.2 % (41.0-53.0); Hemoglobin 10.2 g/dL (13.5-17.5); Lymphocytes # (auto) 0.5 10 ^3/uL (0.4-5.4); Lymphocytes % (auto) 7.1 % (10.0-50.0); Mean Corpuscular Hemoglobin 30.2 pg (28.0-32.0); Mean Corpuscular Hgb Conc. 33.7 g/dL (32.0-36.0); Mean Corpuscular Volume 89.6 fL (80.0-100.0); Monocytes # (auto) 0.5 10 ^3/uL (0-1.3); Monocytes % (auto) 6.5 % (0.0-12.0); Neutrophils # (auto) 6.5 10 ^3/uL (1.6-8.6); Neutrophils % (auto) 84.9 % (37.0-80.0); Red Blood Cells 3.37 10^6/uL (4.5-5.90); Red Cell Distribution Width 18.4 % (11.8-14.3); White Blood Cell 7.6 10^3/uL (4.4-10.8)
[2021-10-04 16:01] LABS: Albumin 3.7 g/dL (3.4-5.0); Calcium 7.7 mg/dL (8.5-10.1); Potassium 5.5 mmol/L (3.5-5.1)
[2021-10-04 16:09] LABS: BUN/Creatinine Ratio 5.7; Bilirubin, Total 0.6 mg/dL (0.2-1.0); CRP High Sensitivity 2.85 mg/dL (< 0.3); Total Protein 8.4 g/dL (6.4-8.2)
[2021-10-04] MEDS ORDERED: hydrALAZINE HCL 20 MG/ML VL IV PRN (17:15)
[2021-10-04] MEDS ORDERED: CALCIUM GLUC 1,000mg/50ml-NS 50 ML IV ONE (17:15)
[2021-10-04] MEDS ORDERED: MORPHINE SULFATE INJECTION 2 MG/ML SYRG IV PRN ×2 (17:15→19:30)
[2021-10-04] MEDS ORDERED: LABETALOL HCL 5 MG/ML 4ML SYRINGE IV PRN (17:15)
[2021-10-04] MEDS ORDERED: SODIUM BICARBONATE 8.4 % INJ 50ML VIAL IV ONE (17:15)
[2021-10-04] MEDS ORDERED: LABETALOL HCL 5 MG/ML 4ML SYRINGE IV ONE (17:15)
[2021-10-04] MEDS ORDERED: NITROGLYCERIN 0.4 MG SL TAB SL PRN ×2 (17:15→19:30)
[2021-10-04] MEDS ORDERED: BUMETANIDE 2.5mg/10ml (0.25 mg/ml) INJ IV ONE (17:15)
[2021-10-04] MEDS ORDERED: NIFEdipine ER 30 MG TAB PO ONE (18:30)
[2021-10-04] MEDS ORDERED: LABETALOL HCL 200 MG TAB PO ONE (18:30)
[2021-10-04] MEDS ORDERED: DEXTROSE (50%) 50ML SYRG IV PRN (18:45)
[2021-10-04] MEDS ORDERED: SEVELAMER 800 MG TAB PO ONE (18:45)
[2021-10-04] MEDS ORDERED: CALCIUM CHL 100MG/ML 1,000 MG in D5W 5% 100 ML IV ONE (18:45)
[2021-10-04] MEDS ORDERED: ENOXAPARIN SOD 100 MG/1 ML SYRINGE SC ONE (18:45)
[2021-10-04] MEDS ORDERED: CALCIUM ACETATE 667 MG CAP PO ONE (18:45)
[2021-10-04] MEDS ORDERED: ISOSORBIDE MONONITRATE ER 60 MG TAB PO ONE (18:45)
[2021-10-04] MEDS ORDERED: ACETAMINOPHEN 325 MG TAB PO PRN (19:30)
[2021-10-04] MEDS ORDERED: FAMOTIDINE (10MG/ML) 2ML VL IV ONE (19:30)
[2021-10-04] MEDS ORDERED: LORazepam 0.5 MG TAB PO PRN (19:30)
[2021-10-04] MEDS ORDERED: DOCUSATE SOD 100 MG CAP PO PRN (19:30)
[2021-10-04] MEDS ORDERED: ALUM & MAG HYDROX-SIMETH LIQ(MAALOX) 30 ML PO PRN (19:30)
[2021-10-04] MEDS ORDERED: LORazepam 2MG/ML-1ML VIAL IV PRN (19:45)
[2021-10-04] MEDS: FAMOTIDINE (10MG/ML) 2ML VL IV SCH (20:36)
[2021-10-04] MEDS: LABETALOL HCL 200 MG TAB PO SCH (22:00)
[2021-10-04] MEDS: hydrALAZINE HCL 25 MG TAB PO SCH (22:00)
[2021-10-04] MEDS: InsuLIN REG 1unit/0.01ml Soln (100units/ml) SC SCH (22:00)
[2021-10-04] MEDS: ACCU-CHEK COMFORT CURVE STRIP VI SCH (22:52)
[2021-10-04] MEDS: ATORVASTATIN 20 MG TAB PO SCH (22:54)
[2021-10-05] MEDS ORDERED: LORazepam 2MG/ML-1ML VIAL IV ONE (01:15)
[2021-10-05] MEDS: MORPHINE SULFATE INJECTION 2 MG/ML SYRG IV PRN (06:31)
[2021-10-05] MEDS: InsuLIN REG 1unit/0.01ml Soln (100units/ml) SC SCH ×4 (07:00→23:11)
[2021-10-05] MEDS: ACCU-CHEK COMFORT CURVE STRIP VI SCH ×4 (07:24→23:06)
[2021-10-05] MEDS: SEVELAMER 800 MG TAB PO SCH ×3 (09:31→18:42)
[2021-10-05] MEDS: CALCIUM ACETATE 667 MG CAP PO SCH ×3 (09:31→18:42)
[2021-10-05] MEDS: LABETALOL HCL 200 MG TAB PO SCH ×2 (10:00→22:00)
[2021-10-05 10:56] LABS: Basophils # (auto) 0 10 ^3/uL (0-0.2); Basophils % (auto) 0.8 % (0.0-2.0); Eosinophils # (auto) 0.1 10 ^3/uL (0-0.8); Eosinophils % (auto) 1.8 % (0.0-7.0); Hematocrit 26.4 % (41.0-53.0); Lymphocytes # (auto) 0.3 10 ^3/uL (0.4-5.4); Lymphocytes % (auto) 6.4 % (10.0-50.0); Mean Corpuscular Hemoglobin 30.4 pg (28.0-32.0); Mean Corpuscular Hgb Conc. 34.2 g/dL (32.0-36.0); Mean Corpuscular Volume 88.9 fL (80.0-100.0); Monocytes # (auto) 0.4 10 ^3/uL (0-1.3); Monocytes % (auto) 8.1 % (0.0-12.0); Neutrophils # (auto) 3.9 10 ^3/uL (1.6-8.6); Neutrophils % (auto) 82.9 % (37.0-80.0); Nucleated Red Blood Cells % 0.1 %; Red Blood Cells 2.97 10^6/uL (4.5-5.90); Red Cell Distribution Width 18.1 % (11.8-14.3); White Blood Cell 4.7 10^3/uL (4.4-10.8)
[2021-10-05] MEDS: ASPirin 81 mg TAB PO SCH (11:06)
[2021-10-05] MEDS: hydrALAZINE HCL 25 MG TAB PO SCH ×2 (11:07→23:05)
[2021-10-05] MEDS: ISOSORBIDE MONONITRATE ER 60 MG TAB PO SCH (11:07)
[2021-10-05] MEDS: NIFEdipine ER 30 MG TAB PO SCH (11:08)
[2021-10-05] MEDS: ENOXAPARIN SOD 100 MG/1 ML SYRINGE SC SCH (11:09)
[2021-10-05 11:10] LABS: Partial Thromboplastin Time 28.9 sec (23.6-33.0)
[2021-10-05 11:13] LABS: Potassium 4.3 mmol/L (3.5-5.1)
[2021-10-05 11:31] LABS: Albumin 3.2 g/dL (3.4-5.0); BUN/Creatinine Ratio 5.1; Bilirubin, Total 0.6 mg/dL (0.2-1.0); Calcium 7.9 mg/dL (8.5-10.1); Magnesium 3.5 mg/dL (1.6-2.6); Phosphorus 5.3 mg/dL (2.5-4.90); Total Protein 7.5 g/dL (6.4-8.2); Uric Acid 3.2 mg/dL (3.5-7.2)
[2021-10-05] MEDS: FAMOTIDINE (10MG/ML) 2ML VL IV SCH (17:39)
[2021-10-05] MEDS: ONDANSETRON HCL 4 MG/2 ML VIAL IV PRN (21:03)
[2021-10-05] MEDS: ATORVASTATIN 20 MG TAB PO SCH (23:05)
[2021-10-06] MEDS: InsuLIN REG 1unit/0.01ml Soln (100units/ml) SC SCH ×4 (06:41→22:42)
[2021-10-06] MEDS: ACCU-CHEK COMFORT CURVE STRIP VI SCH ×4 (06:41→22:41)
[2021-10-06] MEDS: SEVELAMER 800 MG TAB PO SCH ×3 (12:54→18:53)
[2021-10-06] MEDS: ENOXAPARIN SOD 100 MG/1 ML SYRINGE SC SCH (13:00)
[2021-10-06] MEDS: hydrALAZINE HCL 25 MG TAB PO SCH ×2 (13:00→22:00)
[2021-10-06] MEDS: ASPirin 81 mg TAB PO SCH (13:00)
[2021-10-06] MEDS: NIFEdipine ER 30 MG TAB PO SCH (13:00)
[2021-10-06] MEDS: LABETALOL HCL 200 MG TAB PO SCH ×3 (13:00→22:00)
[2021-10-06] MEDS: CALCIUM ACETATE 667 MG CAP PO SCH ×2 (13:00→18:53)
[2021-10-06] MEDS: ISOSORBIDE MONONITRATE ER 60 MG TAB PO SCH (13:00)
[2021-10-06] MEDS: MORPHINE SULFATE INJECTION 2 MG/ML SYRG IV PRN (14:13)
[2021-10-06] MEDS: ONDANSETRON HCL 4 MG/2 ML VIAL IV PRN (15:47)
[2021-10-06] MEDS: FAMOTIDINE (10MG/ML) 2ML VL IV SCH (15:47)
[2021-10-06] MEDS: ATORVASTATIN 20 MG TAB PO SCH (22:47)
[2021-10-07] MEDS ORDERED: SODIUM CHL 0.9% 1000 ML BAG XX ONE (07:00)
[2021-10-07] MEDS: MORPHINE SULFATE INJECTION 2 MG/ML SYRG IV PRN (08:03)
[2021-10-07 08:08] LABS: Hemoglobin 8.2 g/dL (13.5-17.5); Lymphocytes # (auto) 0.6 10 ^3/uL (0.4-5.4); Monocytes # (auto) 0.5 10 ^3/uL (0-1.3); Neutrophils # (auto) 3.8 10 ^3/uL (1.6-8.6); White Blood Cell 5.1 10^3/uL (4.4-10.8)
[2021-10-07 08:10] LABS: Basophils # (auto) 0.1 10 ^3/uL (0-0.2); Eosinophils # (auto) 0.2 10 ^3/uL (0-0.8); Eosinophils % (auto) 3.1 % (0.0-7.0); Hematocrit 24.6 % (41.0-53.0); Lymphocytes % (auto) 11.7 % (10.0-50.0); Mean Corpuscular Hemoglobin 30.2 pg (28.0-32.0); Mean Corpuscular Hgb Conc. 33.5 g/dL (32.0-36.0); Mean Corpuscular Volume 90.3 fL (80.0-100.0); Monocytes % (auto) 10.5 % (0.0-12.0); Neutrophils % (auto) 73.7 % (37.0-80.0); Nucleated Red Blood Cells % 0.1 %; Red Blood Cells 2.72 10^6/uL (4.5-5.90); Red Cell Distribution Width 18.3 % (11.8-14.3)
[2021-10-07] MEDS: ACCU-CHEK COMFORT CURVE STRIP VI SCH ×2 (08:50→11:01)
[2021-10-07 09:09] LABS: Albumin 3.4 g/dL (3.4-5.0); Calcium 8.9 mg/dL (8.5-10.1)
[2021-10-07 09:14] LABS: BUN/Creatinine Ratio 4.8; Bilirubin, Total 0.7 mg/dL (0.2-1.0); Total Protein 6.9 g/dL (6.4-8.2)
[2021-10-07 09:23] LABS: Potassium 5.8 mmol/L (3.5-5.1)
[2021-10-07] MEDS: InsuLIN REG 1unit/0.01ml Soln (100units/ml) SC SCH ×2 (10:56→11:30)
[2021-10-07 11:00] VITALS: BP 168/51
[2021-10-07] MEDS: ASPirin 81 mg TAB PO SCH (11:00)
[2021-10-07] MEDS: SEVELAMER 800 MG TAB PO SCH (11:00)
[2021-10-07] MEDS: hydrALAZINE HCL 25 MG TAB PO SCH (11:00)
[2021-10-07] MEDS: ISOSORBIDE MONONITRATE ER 60 MG TAB PO SCH (11:00)
[2021-10-07] MEDS: CALCIUM ACETATE 667 MG CAP PO SCH (11:00)
[2021-10-07] MEDS: ENOXAPARIN SOD 100 MG/1 ML SYRINGE SC SCH (11:01)
[2021-10-07] MEDS: NIFEdipine ER 30 MG TAB PO SCH (11:01)
[2021-10-07] MEDS: LABETALOL HCL 200 MG TAB PO SCH (11:08)
[2021-10-07] MEDS ORDERED: EPOETIN ALFA-EPBX 4,000 UNIT/ML VIAL SC ONE (21:00)
[2021-10-07] MEDS ORDERED: SACUBITRIL-VALSARTAN 24mg/26mg TAB PO SCH (22:00)
== END 2021-10-07 12:00 | disposition left against medical advice (07) | DRG 190 ==
LOC: ER 14:40 → OVERFLOW 17:10 → TELE 23:23
PROVIDERS: ADMIT Hospitalist; ATTEND Family Medicine
PROC: 5A1D70Z Performance of Urinary Filtration, Intermittent, Less than 6 Hours Per Day (ICD-10-PCS; 2021-10-05)
PROC: 5A1D70Z Performance of Urinary Filtration, Intermittent, Less than 6 Hours Per Day (ICD-10-PCS; principal; 2021-10-07)
DX: I21.4 Non-ST elevation (NSTEMI) myocardial infarction (principal); J96.01 Acute respiratory failure with hypoxia; I50.33 Acute on chronic diastolic (congestive) heart failure; N18.6 End stage renal disease; D63.1 Anemia in chronic kidney disease; E11.40 Type 2 diabetes mellitus with diabetic neuropathy, unspecified; E87.5 Hyperkalemia; I16.1 Hypertensive emergency; R07.9 Chest pain, unspecified; E11.65 Type 2 diabetes mellitus with hyperglycemia; E78.5 Hyperlipidemia, unspecified; H54.7 Unspecified visual loss; M54.50 Low back pain, unspecified; Z53.29 Procedure and treatment not carried out because of patient's decision for other reasons; E11.22 Type 2 diabetes mellitus with diabetic chronic kidney disease; E78.00 Pure hypercholesterolemia, unspecified; F12.10 Cannabis abuse, uncomplicated; F17.210 Nicotine dependence, cigarettes, uncomplicated; I13.2 Hypertensive heart and chronic kidney disease with heart failure and with stage 5 chronic kidney disease, or end stage renal disease; Z20.822 Contact with and (suspected) exposure to COVID-19; Z82.49 Family history of ischemic heart disease and other diseases of the circulatory system; Z83.3 Family history of diabetes mellitus; Z71.51 Drug abuse counseling and surveillance of drug abuser; Z99.2 Dependence on renal dialysis; Z71.6 Tobacco abuse counseling
CPT/HCPCS: 36415; 70450; 71045; 72100; 78582; 80053; 82728; 82962; 83036; 83735; 83880; 84100; 84443; 84484; 84550; 85025; 85379; 85610; 85730; 86141; 87040; 87076; 87426; 90935; 93005; 93970; G0378; J1815; J2405; J3490

== ENCOUNTER 2021-10-29 05:16 | Emergency (ER) | payer MEDICAID ==
[~2021-10-29] VITALS: Ht 180.3 cm; Wt 89.8 kg
[2021-10-29] MEDS ORDERED: FLEET MINERAL OIL ENEMA 133 ML PR ONE (07:45)
[2021-10-29] MEDS ORDERED: HYDROmorphone HCL 2 MG/ML VL IV ONE (07:45)
[2021-10-29] MEDS ORDERED: METOCLOPRAMIDE HCL 5MG/ml INJ 2ml VIAL IV ONE (07:45)
[2021-10-29] MEDS ORDERED: SODIUM CHLORIDE 0.9% 1,000 ML IV ONE (07:45)
[2021-10-29 08:05] LABS: Basophils # (auto) 0 10 ^3/uL (0-0.2); Basophils % (auto) 0.5 % (0.0-2.0); Eosinophils # (auto) 0.1 10 ^3/uL (0-0.8); Eosinophils % (auto) 1.5 % (0.0-7.0); Hematocrit 32.7 % (41.0-53.0); Hemoglobin 10.7 g/dL (13.5-17.5); Lymphocytes # (auto) 0.9 10 ^3/uL (0.4-5.4); Lymphocytes % (auto) 14.5 % (10.0-50.0); Mean Corpuscular Hemoglobin 29.5 pg (28.0-32.0); Mean Corpuscular Hgb Conc. 32.9 g/dL (32.0-36.0); Mean Corpuscular Volume 89.9 fL (80.0-100.0); Monocytes # (auto) 0.6 10 ^3/uL (0-1.3); Monocytes % (auto) 9.5 % (0.0-12.0); Neutrophils # (auto) 4.8 10 ^3/uL (1.6-8.6); Nucleated Red Blood Cells % 0.1 %; Red Blood Cells 3.64 10^6/uL (4.5-5.90); Red Cell Distribution Width 16.9 % (11.8-14.3); White Blood Cell 6.5 10^3/uL (4.4-10.8)
[2021-10-29 08:30] LABS: Albumin 3.9 g/dL (3.4-5.0); Calcium 9.5 mg/dL (8.5-10.1); Magnesium 3.8 mg/dL (1.6-2.6); Potassium 4.8 mmol/L (3.5-5.1)
[2021-10-29 08:33] LABS: BUN/Creatinine Ratio 4.6; Bilirubin, Total 0.5 mg/dL (0.2-1.0); Total Protein 8.4 g/dL (6.4-8.2)
[2021-10-29 10:44] VITALS: BP 213/87
== END 2021-10-29 12:31 | disposition left against medical advice (07) ==
LOC: ER 05:16 → EDBD 05:16 → ER 12:31
DX: K56.41 Fecal impaction (principal); E11.22 Type 2 diabetes mellitus with diabetic chronic kidney disease; I12.0 Hypertensive chronic kidney disease with stage 5 chronic kidney disease or end stage renal disease; N18.6 End stage renal disease; E11.65 Type 2 diabetes mellitus with hyperglycemia; F17.210 Nicotine dependence, cigarettes, uncomplicated; F12.10 Cannabis abuse, uncomplicated; E78.5 Hyperlipidemia, unspecified
CPT/HCPCS: 36415; 74176; 80053; 83690; 83735; 85025; 96361; 96374; 96375; 99285; J1170; J2765; J7030

== ENCOUNTER 2021-11-22 13:57 | Inpatient (IN) | payer MEDICAID ==
[~2021-11-22] VITALS: Ht 182.9 cm; Wt 84.8 kg
[2021-11-22] MEDS ORDERED: LABETALOL HCL 5 MG/ML 4ML SYRINGE IV ONE ×3 (15:00→23:30)
[2021-11-22 15:33] LABS: Basophils # (auto) 0 10 ^3/uL (0-0.2); Basophils % (auto) 0.8 % (0.0-2.0); Eosinophils # (auto) 0 10 ^3/uL (0-0.8); Eosinophils % (auto) 0.8 % (0.0-7.0); Hematocrit 35.6 % (41.0-53.0); Hemoglobin 11.9 g/dL (13.5-17.5); Lymphocytes # (auto) 0.6 10 ^3/uL (0.4-5.4); Lymphocytes % (auto) 12.1 % (10.0-50.0); Mean Corpuscular Hemoglobin 29.5 pg (28.0-32.0); Mean Corpuscular Hgb Conc. 33.4 g/dL (32.0-36.0); Mean Corpuscular Volume 88.4 fL (80.0-100.0); Monocytes # (auto) 0.3 10 ^3/uL (0-1.3); Monocytes % (auto) 6.2 % (0.0-12.0); Neutrophils # (auto) 4.1 10 ^3/uL (1.6-8.6); Neutrophils % (auto) 80.1 % (37.0-80.0); Nucleated Red Blood Cells % 0.1 %; Red Blood Cells 4.03 10^6/uL (4.5-5.90); Red Cell Distribution Width 14.7 % (11.8-14.3); White Blood Cell 5.1 10^3/uL (4.4-10.8)
[2021-11-22 15:52] LABS: Albumin 4.1 g/dL (3.4-5.0); Calcium 8.9 mg/dL (8.5-10.1); Partial Thromboplastin Time 28.5 sec (23.6-33.0); Potassium 5.1 mmol/L (3.5-5.1)
[2021-11-22 16:00] LABS: Bilirubin, Total 0.6 mg/dL (0.2-1.0)
[2021-11-22] MEDS ORDERED: LORazepam 2MG/ML-1ML VIAL IV ONE (16:00)
[2021-11-22] MEDS ORDERED: NITROGLYCERIN 0.4 MG SL TAB SL PRN (17:00)
[2021-11-22] MEDS ORDERED: MORPHINE SULFATE INJECTION 2 MG/ML SYRG IV PRN (17:00)
[2021-11-22] MEDS ORDERED: hydrALAZINE HCL 20 MG/ML VL IV PRN (17:15)
[2021-11-22] MEDS ORDERED: ENOXAPARIN SOD 100 MG/1 ML SYRINGE SC ONE (21:00)
[2021-11-22] MEDS: CARVEDILOL 12.5 MG TAB PO SCH (21:14)
[2021-11-23] MEDS ORDERED: HALOPERIDOL LACTATE 5 MG/ML INJ VIAL ONE (00:51)
[2021-11-23] MEDS ORDERED: LORazepam 2MG/ML-1ML VIAL ONE (01:23)
[2021-11-23] MEDS ORDERED: LORazepam 2MG/ML-1ML VIAL IV ONE ×2 (03:30→22:00)
[2021-11-23] MEDS ORDERED: HALOPERIDOL LACTATE 5 MG/ML INJ VIAL IM ONE ×2 (03:30→13:45)
[2021-11-23 07:27] LABS: Basophils # (auto) 0.1 10 ^3/uL (0-0.2); Basophils % (auto) 1.3 % (0.0-2.0); Eosinophils # (auto) 0 10 ^3/uL (0-0.8); Eosinophils % (auto) 0.6 % (0.0-7.0); Hematocrit 31.7 % (41.0-53.0); Hemoglobin 10.7 g/dL (13.5-17.5); Lymphocytes # (auto) 0.8 10 ^3/uL (0.4-5.4); Mean Corpuscular Hemoglobin 30.1 pg (28.0-32.0); Mean Corpuscular Hgb Conc. 33.8 g/dL (32.0-36.0); Mean Corpuscular Volume 89.2 fL (80.0-100.0); Monocytes # (auto) 0.4 10 ^3/uL (0-1.3); Monocytes % (auto) 6.9 % (0.0-12.0); Neutrophils # (auto) 4.7 10 ^3/uL (1.6-8.6); Neutrophils % (auto) 78.2 % (37.0-80.0); Red Blood Cells 3.55 10^6/uL (4.5-5.90); Red Cell Distribution Width 14.8 % (11.8-14.3); White Blood Cell 6.1 10^3/uL (4.4-10.8)
[2021-11-23 07:43] LABS: Albumin 3.6 g/dL (3.4-5.0); Calcium 8.1 mg/dL (8.5-10.1); Potassium 5.1 mmol/L (3.5-5.1)
[2021-11-23 07:51] LABS: BUN/Creatinine Ratio 4.1; Bilirubin, Total 0.5 mg/dL (0.2-1.0); Total Protein 7.8 g/dL (6.4-8.2)
[2021-11-23] MEDS ORDERED: LORazepam 2MG/ML-1ML VIAL IV PRN ×2 (09:15)
[2021-11-23] MEDS ORDERED: ERY05OO RIGHTEYE ×2 (09:49→09:53)
[2021-11-23] MEDS: CARVEDILOL 12.5 MG TAB PO SCH ×2 (10:00→22:00)
[2021-11-23] MEDS ORDERED: NIFEdipine ER 30 MG TAB PO SCH (10:00)
[2021-11-23] MEDS ORDERED: FOLI1TAB6 PO (10:12)
[2021-11-23] MEDS ORDERED: ATOR20TA50 PO (10:12)
[2021-11-23] MEDS ORDERED: ERGO1CAP12 PO (10:12)
[2021-11-23] MEDS ORDERED: CLON0.2T PO (10:12)
[2021-11-23] MEDS ORDERED: INSU1INJ19 SC (10:12)
[2021-11-23] MEDS ORDERED: ASPI-487 PO (10:12)
[2021-11-23] MEDS ORDERED: CARV12.544 PO (10:12)
[2021-11-23] MEDS ORDERED: NIFE1TAB30 PO (10:12)
[2021-11-23] MEDS ORDERED: LABETALOL HCL 5 MG/ML 4ML SYRINGE IV PRN (13:45)
[2021-11-23] MEDS ORDERED: SODIUM CHL 0.9% 1000 ML BAG XX ONE (14:30)
[2021-11-24] MEDS: CARVEDILOL 12.5 MG TAB PO SCH ×2 (10:12→21:30)
[2021-11-24] MEDS ORDERED: cloNIDine HCL 0.1 MG TAB PO ONE (11:30)
[2021-11-24] MEDS ORDERED: NIFEdipine ER 30 MG TAB PO ONE (11:30)
[2021-11-24 13:00] VITALS: BP 144/73
[2021-11-24 13:05] VITALS: BP 144/73
[2021-11-24] MEDS ORDERED: cloNIDine HCL 0.1 MG TAB PO SCH (14:00)
[2021-11-24 16:49] VITALS: BP 187/94
[2021-11-24 20:00] VITALS: BP 215/111
[2021-11-24 22:00] VITALS: BP 215/111
[2021-11-24] MEDS: LABETALOL HCL 5 MG/ML 4ML SYRINGE IV PRN (23:14)
[2021-11-25] MEDS: LABETALOL HCL 5 MG/ML 4ML SYRINGE IV PRN ×5 (01:16→11:38)
[2021-11-25 05:00] VITALS: BP 173/83
[2021-11-25] MEDS ORDERED: SODIUM CHL 0.9% 1000 ML BAG XX ONE (07:00)
[2021-11-25] MEDS ORDERED: ADENOSINE 93 MG in GIVE UN-DILUTED 0 ML IV ONE (08:30)
[2021-11-25 09:00] VITALS: BP 205/93
[2021-11-25] MEDS ORDERED: NIFEdipine ER 30 MG TAB PO SCH (10:00)
[2021-11-25] MEDS: CARVEDILOL 12.5 MG TAB PO SCH ×2 (10:37→22:16)
[2021-11-25 11:58] LABS: Basophils # (auto) 0 10 ^3/uL (0-0.2); Basophils % (auto) 0.6 % (0.0-2.0); Eosinophils # (auto) 0.1 10 ^3/uL (0-0.8); Eosinophils % (auto) 3.4 % (0.0-7.0); Hemoglobin 9.8 g/dL (13.5-17.5); Lymphocytes # (auto) 0.5 10 ^3/uL (0.4-5.4); Lymphocytes % (auto) 14.3 % (10.0-50.0); Mean Corpuscular Hemoglobin 30.3 pg (28.0-32.0); Mean Corpuscular Hgb Conc. 33.7 g/dL (32.0-36.0); Mean Corpuscular Volume 89.8 fL (80.0-100.0); Monocytes # (auto) 0.4 10 ^3/uL (0-1.3); Monocytes % (auto) 11.2 % (0.0-12.0); Neutrophils # (auto) 2.6 10 ^3/uL (1.6-8.6); Neutrophils % (auto) 70.5 % (37.0-80.0); Nucleated Red Blood Cells % 0.2 %; Red Blood Cells 3.23 10^6/uL (4.5-5.90); White Blood Cell 3.6 10^3/uL (4.4-10.8)
[2021-11-25 13:00] VITALS: BP 192/89
[2021-11-25 13:09] LABS: Albumin 3.6 g/dL (3.4-5.0); Calcium 8.7 mg/dL (8.5-10.1); Potassium 3.5 mmol/L (3.5-5.1)
[2021-11-25 13:11] LABS: BUN/Creatinine Ratio 3.1
[2021-11-25 13:13] LABS: Bilirubin, Total 0.4 mg/dL (0.2-1.0); Total Protein 7.9 g/dL (6.4-8.2)
[2021-11-25 16:51] VITALS: BP 129/96
[2021-11-25 20:00] VITALS: BP 168/68
[2021-11-25 22:00] VITALS: BP 168/68
[2021-11-25] MEDS: NIFEdipine ER 30 MG TAB PO SCH (22:15)
[2021-11-26] MEDS: LABETALOL HCL 5 MG/ML 4ML SYRINGE IV PRN ×2 (04:34→07:55)
[2021-11-26 05:01] VITALS: BP 162/56
[2021-11-26 08:00] VITALS: BP 170/66
[2021-11-26 09:00] VITALS: BP 170/66
[2021-11-26] MEDS: NIFEdipine ER 30 MG TAB PO SCH (10:05)
[2021-11-26] MEDS ORDERED: HYDR50TA15 PO (10:06)
[2021-11-26] MEDS: CARVEDILOL 12.5 MG TAB PO SCH (10:07)
== END 2021-11-26 13:37 | disposition home or self-care (01) | DRG 199 ==
LOC: EDBD 13:57 → ER 14:12 → TELE 16:56 → TELE-CENTR 11-24 11:52
PROVIDERS: ADMIT Internal Medicine; ATTEND Internal Medicine
PROC: 5A1D70Z Performance of Urinary Filtration, Intermittent, Less than 6 Hours Per Day (ICD-10-PCS; 2021-11-23)
PROC: 5A1D70Z Performance of Urinary Filtration, Intermittent, Less than 6 Hours Per Day (ICD-10-PCS; principal; 2021-11-25)
DX: I16.1 Hypertensive emergency (principal); I67.4 Hypertensive encephalopathy; N18.6 End stage renal disease; D63.1 Anemia in chronic kidney disease; I13.2 Hypertensive heart and chronic kidney disease with heart failure and with stage 5 chronic kidney disease, or end stage renal disease; E11.22 Type 2 diabetes mellitus with diabetic chronic kidney disease; E11.65 Type 2 diabetes mellitus with hyperglycemia; R79.89 Other specified abnormal findings of blood chemistry; I50.9 Heart failure, unspecified; E87.5 Hyperkalemia; F12.90 Cannabis use, unspecified, uncomplicated; Z20.822 Contact with and (suspected) exposure to COVID-19; F17.210 Nicotine dependence, cigarettes, uncomplicated; G40.909 Epilepsy, unspecified, not intractable, without status epilepticus; K21.9 Gastro-esophageal reflux disease without esophagitis; Z79.899 Other long term (current) drug therapy; Z82.49 Family history of ischemic heart disease and other diseases of the circulatory system; Z99.2 Dependence on renal dialysis; Z83.3 Family history of diabetes mellitus; Z91.19 Patient's noncompliance with other medical treatment and regimen; Z79.84 Long term (current) use of oral hypoglycemic drugs
CPT/HCPCS: 36415; 70450; 71045; 78452; 80053; 80307; 83880; 84484; 85025; 85610; 85730; 87040; 87081; 87426; 90935; 93005; 93017; 93306; 95819; 96374; 96375; G0378; J0153; J3490

== ENCOUNTER 2022-01-06 16:21 | Inpatient (IN) | payer MEDICAID ==
[~2022-01-06] VITALS: Ht 180.3 cm; Wt 88.8 kg
[~2022-01-06 16:21] MED LIST: ASPI-487 PO; ATOR20TA50 PO; CARV12.544 PO; CLON0.2T PO; ERGO1CAP12 PO; ERY05OO RIGHTEYE; FOLI1TAB6 PO; HYDR50TA15 PO; INSU1INJ19 SC; NIFE1TAB30 PO
[2022-01-06] MEDS ORDERED: LABETALOL HCL 5 MG/ML 4ML SYRINGE IV ONE ×5 (17:45→22:15)
[2022-01-06] MEDS ORDERED: fentaNYL CITRATE 100 MCG/2 ML VL IV ONE ×2 (19:15→22:15)
[2022-01-06 22:12] LABS: Basophils # (auto) 0 10 ^3/uL (0-0.2); Basophils % (auto) 0.8 % (0.0-2.0); Eosinophils # (auto) 0.1 10 ^3/uL (0-0.8); Eosinophils % (auto) 2.3 % (0.0-7.0); Hematocrit 31.2 % (41.0-53.0); Hemoglobin 10.5 g/dL (13.5-17.5); Lymphocytes # (auto) 0.9 10 ^3/uL (0.4-5.4); Lymphocytes % (auto) 28.5 % (10.0-50.0); Mean Corpuscular Hemoglobin 28.9 pg (28.0-32.0); Mean Corpuscular Hgb Conc. 33.5 g/dL (32.0-36.0); Mean Corpuscular Volume 86.4 fL (80.0-100.0); Monocytes # (auto) 0.4 10 ^3/uL (0-1.3); Monocytes % (auto) 12.3 % (0.0-12.0); Neutrophils # (auto) 1.8 10 ^3/uL (1.6-8.6); Neutrophils % (auto) 56.1 % (37.0-80.0); Nucleated Red Blood Cells % 0.1 %; Red Blood Cells 3.61 10^6/uL (4.5-5.90); Red Cell Distribution Width 14.4 % (11.8-14.3); White Blood Cell 3.2 10^3/uL (4.4-10.8)
[2022-01-06 22:17] LABS: Albumin 3.6 g/dL (3.4-5.0); BUN/Creatinine Ratio 3.2; Calcium 9.2 mg/dL (8.5-10.1); Potassium 4.1 mmol/L (3.5-5.1)
[2022-01-06 22:19] LABS: Bilirubin, Total 0.4 mg/dL (0.2-1.0); Total Protein 7.8 g/dL (6.4-8.2)
[2022-01-07] VITALS (44 sets, daily range): BP systolic 135–187; BP diastolic 46–88
[2022-01-07] MEDS ORDERED: MORPHINE SULFATE INJECTION 2 MG/ML SYRG IV PRN (01:00)
[2022-01-07] MEDS ORDERED: DEXTROSE (50%) 50ML SYRG IV PRN (01:00)
[2022-01-07] MEDS ORDERED: NITROGLYCERIN 0.4 MG SL TAB SL PRN (01:00)
[2022-01-07] MEDS ORDERED: ONDANSETRON HCL 4 MG/2 ML VIAL IV PRN (01:00)
[2022-01-07] MEDS ORDERED: TEMAZEPAM 15 MG CAP PO PRN (01:00)
[2022-01-07] MEDS ORDERED: ACETAMINOPHEN 325 MG TAB PO PRN (01:00)
[2022-01-07] MEDS: HYDROcodone-ACET 5/325MG TAB PO PRN ×3 (03:45→17:13)
[2022-01-07] MEDS: hydrALAZINE HCL 25 MG TAB PO SCH ×3 (06:11→22:23)
[2022-01-07] MEDS: ACCU-CHEK COMFORT CURVE STRIP VI SCH ×4 (06:44→22:24)
[2022-01-07] MEDS: InsuLIN REG 1unit/0.01ml Soln (100units/ml) SC SCH ×4 (06:48→22:24)
[2022-01-07] MEDS: NIFEdipine ER 30 MG TAB PO SCH (09:34)
[2022-01-07] MEDS: ASPirin 81 mg TAB PO SCH (09:35)
[2022-01-07] MEDS: CARVEDILOL 12.5 MG TAB PO SCH ×2 (09:36→22:23)
[2022-01-07] MEDS ORDERED: ASPirin 81 mg TAB PO SCH (10:00)
[2022-01-07] MEDS ORDERED: CYCLOPENTOLATE HCL 1% OPTH(EYE) SOL 2ML RIGHTEYE ONE (12:30)
[2022-01-07] MEDS ORDERED: LORazepam 2MG/ML-1ML VIAL IM ONE (13:15)
[2022-01-07 13:29] LABS: CRP High Sensitivity 0.06 mg/dL (< 0.3); Phosphorus 5.7 mg/dL (2.5-4.90)
[2022-01-07] MEDS: BACITRACIN-POLYMYXIN B OPTH(EYE) OINT 3.5GM OP SCH ×2 (15:25→22:23)
[2022-01-07] MEDS ORDERED: ATORVASTATIN 20 MG TAB PO SCH (22:00)
[2022-01-07] MEDS: ATORVASTATIN 20 MG TAB PO SCH (22:23)
[2022-01-07] MEDS: SENNA 8.6 MG TAB PO SCH (22:24)
[2022-01-07] MEDS ORDERED: diphenhdrAMINE HCL 25 MG CAP PO PRN (23:30)
[2022-01-08] VITALS (58 sets, daily range): BP systolic 136–186; BP diastolic 45–101
[2022-01-08] MEDS: HYDROcodone-ACET 5/325MG TAB PO PRN ×2 (04:15→10:28)
[2022-01-08] MEDS: BACITRACIN-POLYMYXIN B OPTH(EYE) OINT 3.5GM OP SCH ×3 (06:00→22:22)
[2022-01-08] MEDS: hydrALAZINE HCL 25 MG TAB PO SCH ×4 (06:00→22:21)
[2022-01-08] MEDS: ACCU-CHEK COMFORT CURVE STRIP VI SCH ×4 (06:00→22:22)
[2022-01-08] MEDS: InsuLIN REG 1unit/0.01ml Soln (100units/ml) SC SCH ×4 (06:01→22:30)
[2022-01-08 06:58] LABS: Basophils # (auto) 0 10 ^3/uL (0-0.2); Basophils % (auto) 0.4 % (0.0-2.0); Eosinophils # (auto) 0.2 10 ^3/uL (0-0.8); Eosinophils % (auto) 2.6 % (0.0-7.0); Hemoglobin 10.9 g/dL (13.5-17.5); Lymphocytes # (auto) 1.1 10 ^3/uL (0.4-5.4); Lymphocytes % (auto) 16.2 % (10.0-50.0); Mean Corpuscular Hemoglobin 29.2 pg (28.0-32.0); Monocytes # (auto) 0.5 10 ^3/uL (0-1.3); Monocytes % (auto) 7.1 % (0.0-12.0); Neutrophils # (auto) 5.2 10 ^3/uL (1.6-8.6); Neutrophils % (auto) 73.7 % (37.0-80.0); Nucleated Red Blood Cells % 0.1 %; Red Blood Cells 3.72 10^6/uL (4.5-5.90); Red Cell Distribution Width 13.9 % (11.8-14.3)
[2022-01-08 07:14] LABS: Albumin 3.8 g/dL (3.4-5.0); BUN/Creatinine Ratio 3.4; Potassium 4.1 mmol/L (3.5-5.1)
[2022-01-08 07:17] LABS: Bilirubin, Total 0.4 mg/dL (0.2-1.0); Total Protein 8.2 g/dL (6.4-8.2)
[2022-01-08] MEDS ORDERED: SODIUM CHL 0.9% 1000 ML BAG XX ONE (09:45)
[2022-01-08] MEDS: POLYETHYLENE GLYCOL 17 GM PWDR PO SCH (10:02)
[2022-01-08] MEDS: MINOXIDIL 2.5 MG TAB PO SCH (10:02)
[2022-01-08] MEDS: ASPirin 81 mg TAB PO SCH (10:03)
[2022-01-08] MEDS: CARVEDILOL 12.5 MG TAB PO SCH ×2 (10:03→22:22)
[2022-01-08] MEDS: NIFEdipine ER 30 MG TAB PO SCH (10:04)
[2022-01-08] MEDS ORDERED: hydrALAZINE HCL 25 MG TAB PO PRN (17:30)
[2022-01-08] MEDS ORDERED: NIFEdipine ER 30 MG TAB PO ONE (18:00)
[2022-01-08] MEDS: HYDROcodone-ACET 10/325MG TAB PO PRN (21:06)
[2022-01-08] MEDS: SENNA 8.6 MG TAB PO SCH (22:21)
[2022-01-08] MEDS: ATORVASTATIN 20 MG TAB PO SCH (22:21)
[2022-01-09 05:00] VITALS: BP 178/76
[2022-01-09] MEDS: hydrALAZINE HCL 25 MG TAB PO SCH ×3 (05:45→22:00)
[2022-01-09] MEDS: BACITRACIN-POLYMYXIN B OPTH(EYE) OINT 3.5GM OP SCH ×3 (05:45→22:02)
[2022-01-09] MEDS: ACCU-CHEK COMFORT CURVE STRIP VI SCH ×3 (06:44→17:50)
[2022-01-09] MEDS: InsuLIN REG 1unit/0.01ml Soln (100units/ml) SC SCH ×3 (06:48→18:35)
[2022-01-09 09:00] VITALS: BP 116/41
[2022-01-09] MEDS: HYDROcodone-ACET 10/325MG TAB PO PRN (10:34)
[2022-01-09] MEDS: ASPirin 81 mg TAB PO SCH (10:34)
[2022-01-09] MEDS: POLYETHYLENE GLYCOL 17 GM PWDR PO SCH (10:36)
[2022-01-09] MEDS: NIFEdipine ER 30 MG TAB PO SCH (10:50)
[2022-01-09] MEDS: CARVEDILOL 12.5 MG TAB PO SCH ×2 (10:51→22:00)
[2022-01-09 13:00] VITALS: BP 198/82
[2022-01-09] MEDS: MINOXIDIL 2.5 MG TAB PO SCH (14:16)
[2022-01-09] MEDS ORDERED: DEXTROSE (50%) 50ML SYRG IV PRN (15:00)
[2022-01-09 17:00] VITALS: BP 182/75
[2022-01-09] MEDS: hydrALAZINE HCL 20 MG/ML VL IV PRN (19:12)
[2022-01-09 22:00] VITALS: BP 169/75
[2022-01-09] MEDS: SENNA 8.6 MG TAB PO SCH (22:01)
[2022-01-09] MEDS: ATORVASTATIN 20 MG TAB PO SCH (22:01)
[2022-01-09] MEDS: INSULIN LANTUS (GLARGINE) 1 /0.01ml (100units/ml) SC SCH (22:52)
[2022-01-10] MEDS: ACCU-CHEK COMFORT CURVE STRIP VI SCH ×5 (00:22→23:40)
[2022-01-10] MEDS: InsuLIN REG 1unit/0.01ml Soln (100units/ml) SC SCH ×5 (00:27→23:42)
[2022-01-10 04:42] VITALS: BP 165/69
[2022-01-10 05:36] LABS: Hematocrit 29.7 % (41.0-53.0)
[2022-01-10] MEDS: hydrALAZINE HCL 25 MG TAB PO SCH ×3 (05:53→22:08)
[2022-01-10] MEDS: BACITRACIN-POLYMYXIN B OPTH(EYE) OINT 3.5GM OP SCH ×3 (05:53→22:07)
[2022-01-10 06:00] LABS: BUN/Creatinine Ratio 3.7; Calcium 9.2 mg/dL (8.5-10.1); Magnesium 2.4 mg/dL (1.6-2.6); Potassium 4.3 mmol/L (3.5-5.1)
[2022-01-10] MEDS ORDERED: SODIUM CHL 0.9% 1000 ML BAG XX ONE (07:00)
[2022-01-10 09:00] VITALS: BP 199/83
[2022-01-10] MEDS: NIFEdipine ER 30 MG TAB PO SCH (09:08)
[2022-01-10] MEDS: CARVEDILOL 12.5 MG TAB PO SCH ×2 (09:08→22:08)
[2022-01-10] MEDS: SACUBITRIL-VALSARTAN 24mg/26mg TAB PO SCH ×2 (09:09→22:08)
[2022-01-10] MEDS: ASPirin 81 mg TAB PO SCH (09:10)
[2022-01-10] MEDS: CHOLECALCIFEROL (VITD3) 2,000 UNIT CAP/TAB PO SCH (09:10)
[2022-01-10] MEDS: POLYETHYLENE GLYCOL 17 GM PWDR PO SCH (09:17)
[2022-01-10] MEDS ORDERED: ISOSORBIDE MONONITRATE ER 60 MG TAB PO SCH (10:00)
[2022-01-10 12:52] VITALS: BP 123/63
[2022-01-10] MEDS: HYDROcodone-ACET 10/325MG TAB PO PRN (13:31)
[2022-01-10 16:48] VITALS: BP 144/71
[2022-01-10 20:00] VITALS: BP 163/75
[2022-01-10 22:00] VITALS: BP 163/75
[2022-01-10] MEDS: ATORVASTATIN 20 MG TAB PO SCH (22:09)
[2022-01-10] MEDS: SENNA 8.6 MG TAB PO SCH (22:09)
[2022-01-10] MEDS: INSULIN LANTUS (GLARGINE) 1 /0.01ml (100units/ml) SC SCH (22:23)
[2022-01-10] MEDS: hydrALAZINE HCL 20 MG/ML VL IV PRN (23:31)
[2022-01-11] VITALS (9 sets, daily range): BP systolic 148–223; BP diastolic 62–100
[2022-01-11] MEDS: HYDROcodone-ACET 10/325MG TAB PO PRN (01:34)
[2022-01-11] MEDS: ACCU-CHEK COMFORT CURVE STRIP VI SCH ×4 (05:58→22:08)
[2022-01-11] MEDS: hydrALAZINE HCL 25 MG TAB PO SCH ×3 (06:05→22:07)
[2022-01-11] MEDS: BACITRACIN-POLYMYXIN B OPTH(EYE) OINT 3.5GM OP SCH ×3 (06:06→22:06)
[2022-01-11] MEDS: InsuLIN REG 1unit/0.01ml Soln (100units/ml) SC SCH ×4 (06:09→23:23)
[2022-01-11] MEDS: SACUBITRIL-VALSARTAN 24mg/26mg TAB PO SCH ×2 (10:38→22:07)
[2022-01-11] MEDS: CARVEDILOL 12.5 MG TAB PO SCH ×2 (10:39→22:07)
[2022-01-11] MEDS: NIFEdipine ER 30 MG TAB PO SCH (10:39)
[2022-01-11] MEDS: ASPirin 81 mg TAB PO SCH (10:39)
[2022-01-11] MEDS: POLYETHYLENE GLYCOL 17 GM PWDR PO SCH (10:40)
[2022-01-11] MEDS: CHOLECALCIFEROL (VITD3) 2,000 UNIT CAP/TAB PO SCH (10:40)
[2022-01-11] MEDS: hydrALAZINE HCL 20 MG/ML VL IV PRN (16:54)
[2022-01-11] MEDS ORDERED: METOCLOPRAMIDE HCL 5MG/ml INJ 2ml VIAL IV PRN (17:15)
[2022-01-11] MEDS: ATORVASTATIN 20 MG TAB PO SCH (22:08)
[2022-01-11] MEDS: SENNA 8.6 MG TAB PO SCH (22:08)
[2022-01-11] MEDS: INSULIN LANTUS (GLARGINE) 1 /0.01ml (100units/ml) SC SCH (23:24)
[2022-01-12] VITALS (7 sets, daily range): BP systolic 156–177; BP diastolic 65–89
[2022-01-12] MEDS: hydrALAZINE HCL 20 MG/ML VL IV PRN (04:34)
[2022-01-12] MEDS: InsuLIN REG 1unit/0.01ml Soln (100units/ml) SC SCH ×4 (06:00→23:42)
[2022-01-12] MEDS: BACITRACIN-POLYMYXIN B OPTH(EYE) OINT 3.5GM OP SCH ×3 (06:07→22:26)
[2022-01-12] MEDS: hydrALAZINE HCL 25 MG TAB PO SCH ×2 (06:08→22:27)
[2022-01-12] MEDS: ACCU-CHEK COMFORT CURVE STRIP VI SCH ×4 (06:08→23:16)
[2022-01-12] MEDS ORDERED: SODIUM CHL 0.9% 1000 ML BAG XX ONE (07:00)
[2022-01-12 09:22] LABS: Hematocrit 34.8 % (41.0-53.0); Hemoglobin 11.5 g/dL (13.5-17.5)
[2022-01-12] MEDS: ASPirin 81 mg TAB PO SCH (09:33)
[2022-01-12] MEDS: POLYETHYLENE GLYCOL 17 GM PWDR PO SCH (09:33)
[2022-01-12] MEDS: CHOLECALCIFEROL (VITD3) 2,000 UNIT CAP/TAB PO SCH (09:34)
[2022-01-12] MEDS: CARVEDILOL 12.5 MG TAB PO SCH ×2 (09:35→22:27)
[2022-01-12] MEDS: SACUBITRIL-VALSARTAN 24mg/26mg TAB PO SCH (09:35)
[2022-01-12] MEDS: NIFEdipine ER 30 MG TAB PO SCH (09:36)
[2022-01-12 09:44] LABS: BUN/Creatinine Ratio 4.3; Calcium 9.5 mg/dL (8.5-10.1); Potassium 5.3 mmol/L (3.5-5.1)
[2022-01-12] MEDS ORDERED: ISOSORBIDE MONONITRATE ER 60 MG TAB PO SCH (10:00)
[2022-01-12] MEDS: ISOSORBIDE MONONITRATE ER 60 MG TAB PO SCH ×2 (16:30→22:28)
[2022-01-12] MEDS ORDERED: EPOETIN ALFA-EPBX 10,000 UNIT/1ML VIAL SC ONE (21:00)
[2022-01-12] MEDS: SENNA 8.6 MG TAB PO SCH (22:28)
[2022-01-12] MEDS: ATORVASTATIN 20 MG TAB PO SCH (22:28)
[2022-01-12] MEDS: HYDROcodone-ACET 10/325MG TAB PO PRN (22:33)
[2022-01-12] MEDS: INSULIN LANTUS (GLARGINE) 1 /0.01ml (100units/ml) SC SCH (23:43)
[2022-01-13 05:33] VITALS: BP 160/65
[2022-01-13] MEDS: BACITRACIN-POLYMYXIN B OPTH(EYE) OINT 3.5GM OP SCH ×2 (05:52→14:00)
[2022-01-13] MEDS: hydrALAZINE HCL 25 MG TAB PO SCH ×2 (05:53→15:03)
[2022-01-13] MEDS: ACCU-CHEK COMFORT CURVE STRIP VI SCH ×2 (05:53→12:47)
[2022-01-13] MEDS: InsuLIN REG 1unit/0.01ml Soln (100units/ml) SC SCH ×2 (05:58→12:51)
[2022-01-13 07:47] VITALS: BP 163/75
[2022-01-13 09:00] VITALS: BP 202/84
[2022-01-13] MEDS: POLYETHYLENE GLYCOL 17 GM PWDR PO SCH (10:00)
[2022-01-13] MEDS: CHOLECALCIFEROL (VITD3) 2,000 UNIT CAP/TAB PO SCH (10:01)
[2022-01-13] MEDS: ASPirin 81 mg TAB PO SCH (10:02)
[2022-01-13] MEDS: HYDROcodone-ACET 10/325MG TAB PO PRN (10:02)
[2022-01-13] MEDS: ISOSORBIDE MONONITRATE ER 60 MG TAB PO SCH (10:03)
[2022-01-13] MEDS: CARVEDILOL 12.5 MG TAB PO SCH (10:03)
[2022-01-13] MEDS: NIFEdipine ER 30 MG TAB PO SCH (10:04)
[2022-01-13] MEDS ORDERED: ISOS60TA24 PO (12:00)
[2022-01-13] MEDS ORDERED: CARV25TA PO (12:00)
[2022-01-13] MEDS ORDERED: HYDR-4298 PO (12:00)
[2022-01-13] MEDS ORDERED: NIFE90TA49 PO (12:00)
[2022-01-13 15:06] VITALS: BP 192/87
[2022-01-13 16:00] VITALS: BP 156/81
== END 2022-01-13 18:00 | disposition home health service (06) | DRG 199 ==
LOC: EDUNIT# 16:21 → EDBD 16:44 → ER 16:44 → OVERFLOW 01-07 00:57 → ICU WEST 01-07 08:00 → TELE-WESTW 01-07 08:20 → WEST WING 01-08 20:05 → TELE-WESTW 01-08 20:22
PROVIDERS: ADMIT Nurse Practitioner; ATTEND Internal Medicine
PROC: 5A1D70Z Performance of Urinary Filtration, Intermittent, Less than 6 Hours Per Day (ICD-10-PCS; principal; 2022-01-08)
PROC: 5A1D70Z Performance of Urinary Filtration, Intermittent, Less than 6 Hours Per Day (ICD-10-PCS; 2022-01-10)
PROC: 5A1D70Z Performance of Urinary Filtration, Intermittent, Less than 6 Hours Per Day (ICD-10-PCS; 2022-01-12)
DX: I16.0 Hypertensive urgency (principal); I21.A1 Myocardial infarction type 2; E87.3 Alkalosis; D63.1 Anemia in chronic kidney disease; H44.001 Unspecified purulent endophthalmitis, right eye; I12.0 Hypertensive chronic kidney disease with stage 5 chronic kidney disease or end stage renal disease; N18.6 End stage renal disease; Z66 Do not resuscitate; Z91.19 Patient's noncompliance with other medical treatment and regimen; Z99.2 Dependence on renal dialysis; Z20.822 Contact with and (suspected) exposure to COVID-19; E66.3 Overweight; H16.001 Unspecified corneal ulcer, right eye; E11.22 Type 2 diabetes mellitus with diabetic chronic kidney disease; E55.9 Vitamin D deficiency, unspecified; M48.07 Spinal stenosis, lumbosacral region; M51.36 Other intervertebral disc degeneration, lumbar region; E78.5 Hyperlipidemia, unspecified; F17.210 Nicotine dependence, cigarettes, uncomplicated; G89.29 Other chronic pain; K59.00 Constipation, unspecified; Z83.3 Family history of diabetes mellitus; Z82.49 Family history of ischemic heart disease and other diseases of the circulatory system
CPT/HCPCS: 36415; 70450; 71045; 72148; 74176; 80048; 80053; 80061; 82306; 82962; 83036; 83735; 83880; 83970; 84100; 84443; 84484; 85014; 85018; 85025; 85379; 85652; 86141; 87081; 90935; 92610; 93005; 96374; 96375; 96376; 99291; G0378; J1815; J2405; J3490

== ENCOUNTER 2022-03-26 14:54 | Inpatient (IN) | payer MEDICAID ==
[~2022-03-26] VITALS: Ht 190.5 cm; Wt 87.0 kg
[~2022-03-26 14:54] MED LIST changes: -CARV12.544 PO; -HYDR50TA15 PO; -NIFE1TAB30 PO
[2022-03-26 16:26] LABS: Basophils # (auto) 0.1 10 ^3/uL (0-0.2); Basophils % (auto) 0.8 % (0.0-2.0); Eosinophils # (auto) 0.2 10 ^3/uL (0-0.8); Eosinophils % (auto) 2.3 % (0.0-7.0); Hematocrit 32.2 % (41.0-53.0); Hemoglobin 10.3 g/dL (13.5-17.5); Lymphocytes # (auto) 0.2 10 ^3/uL (0.4-5.4); Lymphocytes % (auto) 2.2 % (10.0-50.0); Mean Corpuscular Volume 87.4 fL (80.0-100.0); Monocytes # (auto) 0.5 10 ^3/uL (0-1.3); Monocytes % (auto) 7.1 % (0.0-12.0); Neutrophils # (auto) 6.1 10 ^3/uL (1.6-8.6); Neutrophils % (auto) 87.6 % (37.0-80.0); Red Blood Cells 3.68 10^6/uL (4.5-5.90)
[2022-03-26 16:44] LABS: Albumin 3.7 g/dL (3.4-5.0); BUN/Creatinine Ratio 5.1; Calcium 8.4 mg/dL (8.5-10.1); Magnesium 2.6 mg/dL (1.6-2.6); Potassium 5.3 mmol/L (3.5-5.1)
[2022-03-26 16:46] LABS: Bilirubin, Total 0.5 mg/dL (0.2-1.0); Total Protein 7.4 g/dL (6.4-8.2)
[2022-03-26] MEDS ORDERED: cloNIDine HCL 0.1 MG TAB PO ONE (17:00)
[2022-03-26] MEDS ORDERED: ACETAMINOPHEN 325 MG TAB PO ONE (17:30)
[2022-03-26] MEDS ORDERED: hydrALAZINE HCL 20 MG/ML VL IV ONE (20:00)
[2022-03-26] MEDS ORDERED: CEFEPIME 1GM/ 50ML 50 ML IV ONE (20:15)
[2022-03-26] MEDS ORDERED: VANCOMYCIN 1GM/250ML 250 ML IV ONE (20:15)
[2022-03-26] MEDS ORDERED: MORPHINE SULFATE INJ 2 MG/ml SYRG IV PRN (21:30)
[2022-03-26] MEDS ORDERED: NITROGLYCERIN 0.4 MG SL TAB SL PRN (21:30)
[2022-03-26] MEDS ORDERED: DEXTROSE (50%) 50ML SYRG IV PRN (21:30)
[2022-03-26] MEDS ORDERED: ONDANSETRON HCL 4 MG/2 ML VIAL IV PRN (21:30)
[2022-03-26] MEDS: InsuLIN REG 1unit/0.01ml Soln (100units/ml) SC SCH (22:00)
[2022-03-26] MEDS: ACCU-CHEK COMFORT CURVE STRIP VI SCH (22:00)
[2022-03-26] MEDS: ATORVASTATIN 20 MG TAB PO SCH (22:45)
[2022-03-26] MEDS: HEPARIN SODIUM (PORCINE) 5000 UNITS/ML 1ML VIAL SC SCH (22:47)
[2022-03-26] MEDS: hydrALAZINE HCL 20 MG/ML VL IV PRN (23:25)
[2022-03-26] MEDS: MORPHINE SULFATE INJ 2 MG/ml SYRG IV PRN (23:25)
[2022-03-26] MEDS ORDERED: NIFE20CA PO (23:45)
[2022-03-27] MEDS: cloNIDine HCL 0.1 MG TAB PO SCH ×4 (00:38→22:07)
[2022-03-27 05:57] LABS: Basophils # (auto) 0 10 ^3/uL (0-0.2); Basophils % (auto) 0.8 % (0.0-2.0); Eosinophils # (auto) 0.1 10 ^3/uL (0-0.8); Eosinophils % (auto) 1.4 % (0.0-7.0); Hematocrit 32.3 % (41.0-53.0); Hemoglobin 10.6 g/dL (13.5-17.5); Lymphocytes # (auto) 0.3 10 ^3/uL (0.4-5.4); Lymphocytes % (auto) 5.4 % (10.0-50.0); Mean Corpuscular Hemoglobin 28.6 pg (28.0-32.0); Mean Corpuscular Hgb Conc. 32.6 g/dL (32.0-36.0); Mean Corpuscular Volume 87.5 fL (80.0-100.0); Monocytes # (auto) 0.7 10 ^3/uL (0-1.3); Monocytes % (auto) 13.3 % (0.0-12.0); Neutrophils # (auto) 4.3 10 ^3/uL (1.6-8.6); Neutrophils % (auto) 79.1 % (37.0-80.0); Nucleated Red Blood Cells % 0.1 %; Red Cell Distribution Width 17.3 % (11.8-14.3); White Blood Cell 5.4 10^3/uL (4.4-10.8)
[2022-03-27 06:15] LABS: Calcium 7.9 mg/dL (8.5-10.1); Potassium 4.6 mmol/L (3.5-5.1)
[2022-03-27 06:18] LABS: BUN/Creatinine Ratio 5.2; CRP High Sensitivity 0.48 mg/dL (< 0.3)
[2022-03-27] MEDS: ACCU-CHEK COMFORT CURVE STRIP VI SCH ×4 (06:44→22:07)
[2022-03-27] MEDS: InsuLIN REG 1unit/0.01ml Soln (100units/ml) SC SCH ×4 (06:44→22:00)
[2022-03-27] MEDS: MORPHINE SULFATE INJ 2 MG/ml SYRG IV PRN ×5 (08:53→20:29)
[2022-03-27] MEDS ORDERED: cefTRIAXone 1GM/50ML D5W 50 ML IV SCH (09:00)
[2022-03-27] MEDS ORDERED: cloNIDine HCL 0.1 MG TAB PO SCH (10:00)
[2022-03-27] MEDS: ASPirin-EC 81 mg tab PO SCH (10:24)
[2022-03-27] MEDS: FOLIC ACID 1 MG TAB PO SCH (10:26)
[2022-03-27] MEDS: HEPARIN SODIUM (PORCINE) 5000 UNITS/ML 1ML VIAL SC SCH ×3 (10:26→22:00)
[2022-03-27] MEDS: hydrALAZINE HCL 20 MG/ML VL IV PRN (15:29)
[2022-03-27] MEDS ORDERED: NIFEdipine 10 MG CAP PO ONE (16:45)
[2022-03-27] MEDS ORDERED: ACETAMINOPHEN 500 MG TAB PO ONE (17:30)
[2022-03-27] MEDS ORDERED: VANCOMYCIN PER PHARMACY 0 MG IV SCH (18:45)
[2022-03-27] MEDS: ATENOLOL 50 MG TAB PO SCH (22:07)
[2022-03-27] MEDS: ATORVASTATIN 20 MG TAB PO SCH (22:07)
[2022-03-28] MEDS: ACCU-CHEK COMFORT CURVE STRIP VI SCH ×4 (06:34→22:00)
[2022-03-28] MEDS: InsuLIN REG 1unit/0.01ml Soln (100units/ml) SC SCH ×4 (06:34→22:00)
[2022-03-28] MEDS ORDERED: SODIUM CHL 0.9% 1000 ML BAG XX ONE (07:00)
[2022-03-28] MEDS: cefTRIAXone 1GM/50ML D5W 50 ML IV SCH (09:30)
[2022-03-28] MEDS: FOLIC ACID 1 MG TAB PO SCH (09:55)
[2022-03-28] MEDS: cloNIDine HCL 0.1 MG TAB PO SCH ×2 (09:55→23:07)
[2022-03-28] MEDS: ATENOLOL 50 MG TAB PO SCH ×2 (09:56→23:08)
[2022-03-28] MEDS: ASPirin-EC 81 mg tab PO SCH (09:56)
[2022-03-28] MEDS: HEPARIN SODIUM (PORCINE) 5000 UNITS/ML 1ML VIAL SC SCH ×2 (09:56→22:00)
[2022-03-28] MEDS ORDERED: diphenhdrAMINE HCL 50 MG/1 ML VL IV ONE (14:00)
[2022-03-28] MEDS: hydrALAZINE HCL 20 MG/ML VL IV PRN (14:38)
[2022-03-28] MEDS ORDERED: NIFEdipine 10 MG CAP PO ONE (15:30)
[2022-03-28] MEDS ORDERED: VANCOMYCIN 1GM/250ML 250 ML IV ONE (16:00)
[2022-03-28] MEDS: hydrALAZINE HCL 25 MG TAB PO PRN (16:14)
[2022-03-28] MEDS ORDERED: ACETAMINOPHEN 325 MG TAB PO PRN (21:00)
[2022-03-28] MEDS: NIFEdipine 10 MG CAP PO SCH (23:06)
[2022-03-28] MEDS: ATORVASTATIN 20 MG TAB PO SCH (23:06)
[2022-03-29] MEDS: InsuLIN REG 1unit/0.01ml Soln (100units/ml) SC SCH ×4 (07:00→22:00)
[2022-03-29] MEDS: ACCU-CHEK COMFORT CURVE STRIP VI SCH ×4 (07:26→22:00)
[2022-03-29] MEDS: cefTRIAXone 1GM/50ML D5W 50 ML IV SCH (09:08)
[2022-03-29] MEDS: HEPARIN SODIUM (PORCINE) 5000 UNITS/ML 1ML VIAL SC SCH ×3 (09:09→22:00)
[2022-03-29] MEDS: ASPirin-EC 81 mg tab PO SCH (09:09)
[2022-03-29] MEDS: NIFEdipine 10 MG CAP PO SCH ×2 (09:09→22:29)
[2022-03-29] MEDS: ATENOLOL 50 MG TAB PO SCH ×2 (09:10→22:30)
[2022-03-29] MEDS: FOLIC ACID 1 MG TAB PO SCH (09:10)
[2022-03-29] MEDS: cloNIDine HCL 0.1 MG TAB PO SCH ×2 (09:10→22:29)
[2022-03-29 10:05] LABS: Hematocrit 28.9 % (41.0-53.0); Hemoglobin 9.5 g/dL (13.5-17.5); Mean Corpuscular Hemoglobin 28.9 pg (28.0-32.0); Mean Corpuscular Volume 87.6 fL (80.0-100.0); Red Cell Distribution Width 16.8 % (11.8-14.3)
[2022-03-29 10:08] LABS: White Blood Cell 1.7 10^3/uL (4.4-10.8)
[2022-03-29 10:09] LABS: Basophils % (manual) 0 (0.0-2.0); Blast Cells 0; Metamyelocytes % 0; Myelocytes % 0; Promyelocytes % 0; Reactive Lymphocytes 0
[2022-03-29 10:15] LABS: BUN/Creatinine Ratio 4.6; Calcium 7.1 mg/dL (8.5-10.1)
[2022-03-29] MEDS: hydrALAZINE HCL 20 MG/ML VL IV PRN (11:19)
[2022-03-29] MEDS: hydrALAZINE HCL 25 MG TAB PO PRN (12:47)
[2022-03-29 14:15] LABS: Band Neutrophils % (manual) 3; Eosinophils % (manual) 2 (0-7); Lymphocytes % (manual) 36 (10.0-50.0); Monocytes % (manual) 8 (0-12)
[2022-03-29] MEDS: ATORVASTATIN 20 MG TAB PO SCH (22:30)
[2022-03-30] MEDS: hydrALAZINE HCL 20 MG/ML VL IV PRN ×2 (06:42→14:20)
[2022-03-30] MEDS: MORPHINE SULFATE INJ 2 MG/ml SYRG IV PRN (06:43)
[2022-03-30 06:44] LABS: Hemoglobin 9.1 g/dL (13.5-17.5); Mean Corpuscular Hemoglobin 28.9 pg (28.0-32.0); Red Cell Distribution Width 16.6 % (11.8-14.3)
[2022-03-30 06:45] LABS: Hematocrit 27.3 % (41.0-53.0); Mean Corpuscular Hgb Conc. 33.2 g/dL (32.0-36.0); Mean Corpuscular Volume 87.1 fL (80.0-100.0); Red Blood Cells 3.14 10^6/uL (4.5-5.90)
[2022-03-30 06:52] LABS: White Blood Cell 1.6 10^3/uL (4.4-10.8)
[2022-03-30 06:53] LABS: BUN/Creatinine Ratio 5.1; Calcium 6.9 mg/dL (8.5-10.1); Magnesium 2.4 mg/dL (1.6-2.6); Potassium 5.3 mmol/L (3.5-5.1)
[2022-03-30 06:54] LABS: Basophils % (manual) 0 (0.0-2.0); Blast Cells 0; Eosinophils % (manual) 0 (0-7); Metamyelocytes % 0; Myelocytes % 0; Promyelocytes % 0; Reactive Lymphocytes 0
[2022-03-30] MEDS: InsuLIN REG 1unit/0.01ml Soln (100units/ml) SC SCH ×4 (07:00→22:00)
[2022-03-30] MEDS: ACCU-CHEK COMFORT CURVE STRIP VI SCH ×4 (07:00→22:00)
[2022-03-30] MEDS ORDERED: SODIUM CHL 0.9% 1000 ML BAG XX ONE (08:30)
[2022-03-30] MEDS ORDERED: diphenhdrAMINE HCL 50 MG/1 ML VL IV ONE (09:30)
[2022-03-30] MEDS: HEPARIN SODIUM (PORCINE) 5000 UNITS/ML 1ML VIAL SC SCH ×2 (11:59→22:39)
[2022-03-30] MEDS: ASPirin-EC 81 mg tab PO SCH (12:11)
[2022-03-30] MEDS: cloNIDine HCL 0.1 MG TAB PO SCH ×2 (12:12→22:27)
[2022-03-30] MEDS: FOLIC ACID 1 MG TAB PO SCH (12:13)
[2022-03-30] MEDS: ATENOLOL 50 MG TAB PO SCH ×2 (12:14→22:27)
[2022-03-30] MEDS: NIFEdipine 10 MG CAP PO SCH ×2 (13:04→22:00)
[2022-03-30] MEDS: cefTRIAXone 1GM/50ML D5W 50 ML IV SCH (13:04)
[2022-03-30] MEDS: hydrALAZINE HCL 25 MG TAB PO PRN (13:06)
[2022-03-30 13:52] LABS: Band Neutrophils % (manual) 3; Lymphocytes % (manual) 32 (10.0-50.0); Monocytes % (manual) 10 (0-12)
[2022-03-30] MEDS ORDERED: EPOETIN ALFA-EPBX 4,000 UNIT/ML VIAL SC ONE (21:00)
[2022-03-30] MEDS: ATORVASTATIN 20 MG TAB PO SCH (22:25)
[2022-03-30 23:22] LABS: Hematocrit 30.4 % (41.0-53.0); Hemoglobin 9.8 g/dL (13.5-17.5)
[2022-03-31] MEDS: LORazepam 2MG/ML-1ML VIAL IV PRN ×2 (05:22→21:47)
[2022-03-31] MEDS: ACCU-CHEK COMFORT CURVE STRIP VI SCH ×4 (07:00→21:37)
[2022-03-31] MEDS: InsuLIN REG 1unit/0.01ml Soln (100units/ml) SC SCH ×4 (07:00→21:36)
[2022-03-31 07:21] LABS: Basophils # (auto) 0 10 ^3/uL (0-0.2); Basophils % (auto) 0.8 % (0.0-2.0); Eosinophils # (auto) 0 10 ^3/uL (0-0.8); Eosinophils % (auto) 2.3 % (0.0-7.0); Hematocrit 27.5 % (41.0-53.0); Hemoglobin 9.3 g/dL (13.5-17.5); Lymphocytes # (auto) 0.4 10 ^3/uL (0.4-5.4); Lymphocytes % (auto) 17.2 % (10.0-50.0); Mean Corpuscular Hemoglobin 29.4 pg (28.0-32.0); Mean Corpuscular Hgb Conc. 33.7 g/dL (32.0-36.0); Mean Corpuscular Volume 87.2 fL (80.0-100.0); Monocytes # (auto) 0.1 10 ^3/uL (0-1.3); Monocytes % (auto) 6.8 % (0.0-12.0); Neutrophils # (auto) 1.6 10 ^3/uL (1.6-8.6); Neutrophils % (auto) 72.9 % (37.0-80.0); Nucleated Red Blood Cells % 0.1 %; Red Blood Cells 3.16 10^6/uL (4.5-5.90); Red Cell Distribution Width 16.8 % (11.8-14.3); White Blood Cell 2.1 10^3/uL (4.4-10.8)
[2022-03-31 07:33] LABS: Calcium 7.3 mg/dL (8.5-10.1); Potassium 4.6 mmol/L (3.5-5.1)
[2022-03-31 07:38] LABS: Magnesium 2.5 mg/dL (1.6-2.6)
[2022-03-31] MEDS: NIFEdipine 10 MG CAP PO SCH ×2 (09:48→21:35)
[2022-03-31] MEDS: ATENOLOL 50 MG TAB PO SCH ×2 (09:48→21:35)
[2022-03-31] MEDS: ASPirin-EC 81 mg tab PO SCH (09:48)
[2022-03-31] MEDS: cloNIDine HCL 0.1 MG TAB PO SCH ×2 (09:49→21:34)
[2022-03-31] MEDS: FOLIC ACID 1 MG TAB PO SCH (09:49)
[2022-03-31] MEDS: HEPARIN SODIUM (PORCINE) 5000 UNITS/ML 1ML VIAL SC SCH ×2 (10:00→21:36)
[2022-03-31] MEDS: hydrALAZINE HCL 20 MG/ML VL IV PRN ×2 (14:06→16:54)
[2022-03-31 17:00] VITALS: BP 178/86
[2022-03-31 20:00] VITALS: BP 170/60
[2022-03-31] MEDS: ATORVASTATIN 20 MG TAB PO SCH (21:34)
[2022-03-31 22:00] VITALS: BP 169/76
[2022-04-01 05:00] VITALS: BP 162/75
[2022-04-01] MEDS: InsuLIN REG 1unit/0.01ml Soln (100units/ml) SC SCH ×4 (06:25→22:08)
[2022-04-01] MEDS: ACCU-CHEK COMFORT CURVE STRIP VI SCH ×4 (06:26→22:08)
[2022-04-01 09:00] VITALS: BP 191/92
[2022-04-01] MEDS: cloNIDine HCL 0.1 MG TAB PO SCH ×2 (09:32→22:02)
[2022-04-01] MEDS: FOLIC ACID 1 MG TAB PO SCH (09:32)
[2022-04-01] MEDS: ASPirin-EC 81 mg tab PO SCH (09:33)
[2022-04-01] MEDS: ATENOLOL 50 MG TAB PO SCH ×2 (09:33→22:04)
[2022-04-01] MEDS: NIFEdipine 10 MG CAP PO SCH (09:49)
[2022-04-01] MEDS: HEPARIN SODIUM (PORCINE) 5000 UNITS/ML 1ML VIAL SC SCH ×2 (09:50→22:06)
[2022-04-01] MEDS ORDERED: hydrALAZINE HCL 25 MG TAB PO SCH (10:00)
[2022-04-01 11:07] LABS: Basophils # (auto) 0 10 ^3/uL (0-0.2); Basophils % (auto) 0.8 % (0.0-2.0); Eosinophils # (auto) 0.1 10 ^3/uL (0-0.8); Eosinophils % (auto) 4.2 % (0.0-7.0); Hematocrit 28.5 % (41.0-53.0); Hemoglobin 9.2 g/dL (13.5-17.5); Lymphocytes # (auto) 0.4 10 ^3/uL (0.4-5.4); Mean Corpuscular Hemoglobin 28.3 pg (28.0-32.0); Mean Corpuscular Hgb Conc. 32.5 g/dL (32.0-36.0); Mean Corpuscular Volume 87.1 fL (80.0-100.0); Monocytes # (auto) 0.1 10 ^3/uL (0-1.3); Monocytes % (auto) 6.6 % (0.0-12.0); Neutrophils # (auto) 1.4 10 ^3/uL (1.6-8.6); Neutrophils % (auto) 67.4 % (37.0-80.0); Nucleated Red Blood Cells % 0.1 %; Red Blood Cells 3.27 10^6/uL (4.5-5.90); Red Cell Distribution Width 16.5 % (11.8-14.3); White Blood Cell 2.1 10^3/uL (4.4-10.8)
[2022-04-01 13:00] VITALS: BP 189/85
[2022-04-01] MEDS: hydrALAZINE HCL 20 MG/ML VL IV PRN (15:00)
[2022-04-01] MEDS: LORazepam 2MG/ML-1ML VIAL IV PRN ×2 (15:33→22:09)
[2022-04-01 17:00] VITALS: BP 160/80
[2022-04-01 20:00] VITALS: BP 170/91
[2022-04-01 22:00] VITALS: BP 183/83
[2022-04-01] MEDS ORDERED: NIFEdipine 10 MG CAP PO SCH (22:00)
[2022-04-01] MEDS: ATORVASTATIN 20 MG TAB PO SCH (22:03)
[2022-04-02 05:00] VITALS: BP 216/97
[2022-04-02] MEDS: InsuLIN REG 1unit/0.01ml Soln (100units/ml) SC SCH ×4 (05:20→22:08)
[2022-04-02] MEDS: ACCU-CHEK COMFORT CURVE STRIP VI SCH ×4 (05:22→22:07)
[2022-04-02] MEDS: hydrALAZINE HCL 20 MG/ML VL IV PRN ×3 (05:24→13:35)
[2022-04-02 09:00] VITALS: BP 189/82
[2022-04-02] MEDS: FOLIC ACID 1 MG TAB PO SCH (09:35)
[2022-04-02] MEDS: ATENOLOL 50 MG TAB PO SCH ×2 (09:36→22:05)
[2022-04-02] MEDS: ASPirin-EC 81 mg tab PO SCH (09:36)
[2022-04-02] MEDS: cloNIDine HCL 0.1 MG TAB PO SCH ×2 (09:37→22:04)
[2022-04-02] MEDS: HEPARIN SODIUM (PORCINE) 5000 UNITS/ML 1ML VIAL SC SCH ×3 (09:37→22:06)
[2022-04-02] MEDS ORDERED: NIFEdipine ER 30 MG TAB PO SCH (10:00)
[2022-04-02 12:01] LABS: Basophils # (auto) 0.1 10 ^3/uL (0-0.2); Basophils % (auto) 3.4 % (0.0-2.0); Eosinophils # (auto) 0.1 10 ^3/uL (0-0.8); Eosinophils % (auto) 4.3 % (0.0-7.0); Hematocrit 28.8 % (41.0-53.0); Hemoglobin 9.4 g/dL (13.5-17.5); Lymphocytes # (auto) 0.4 10 ^3/uL (0.4-5.4); Lymphocytes % (auto) 12.6 % (10.0-50.0); Mean Corpuscular Hemoglobin 28.6 pg (28.0-32.0); Mean Corpuscular Hgb Conc. 32.6 g/dL (32.0-36.0); Mean Corpuscular Volume 87.8 fL (80.0-100.0); Monocytes # (auto) 0.2 10 ^3/uL (0-1.3); Monocytes % (auto) 6.8 % (0.0-12.0); Neutrophils # (auto) 2.2 10 ^3/uL (1.6-8.6); Neutrophils % (auto) 72.9 % (37.0-80.0); Red Blood Cells 3.27 10^6/uL (4.5-5.90); Red Cell Distribution Width 16.6 % (11.8-14.3)
[2022-04-02 12:16] LABS: BUN/Creatinine Ratio 4.2; Potassium 5.5 mmol/L (3.5-5.1)
[2022-04-02 13:00] VITALS: BP 198/85
[2022-04-02 17:00] VITALS: BP 185/85
[2022-04-02 20:00] VITALS: BP 172/81
[2022-04-02 22:00] VITALS: BP 172/81
[2022-04-02] MEDS: hydrALAZINE HCL 25 MG TAB PO SCH (22:03)
[2022-04-02] MEDS: ATORVASTATIN 20 MG TAB PO SCH (22:04)
[2022-04-02] MEDS: LORazepam 2MG/ML-1ML VIAL IV PRN (22:07)
[2022-04-02] MEDS: NIFEdipine ER 30 MG TAB PO SCH (22:09)
[2022-04-03] MEDS: hydrALAZINE HCL 20 MG/ML VL IV PRN (00:04)
[2022-04-03] MEDS ORDERED: diphenhdrAMINE HCL 25 MG CAP PO PRN (01:15)
[2022-04-03] MEDS: MORPHINE SULFATE INJ 2 MG/ml SYRG IV PRN (04:40)
[2022-04-03 05:00] VITALS: BP 158/71
[2022-04-03] MEDS: ACCU-CHEK COMFORT CURVE STRIP VI SCH ×3 (05:58→17:00)
[2022-04-03] MEDS: InsuLIN REG 1unit/0.01ml Soln (100units/ml) SC SCH ×3 (05:58→17:00)
[2022-04-03 07:26] LABS: Basophils # (auto) 0 10 ^3/uL (0-0.2); Basophils % (auto) 0.8 % (0.0-2.0); Eosinophils # (auto) 0.2 10 ^3/uL (0-0.8); Eosinophils % (auto) 6.2 % (0.0-7.0); Hematocrit 28.6 % (41.0-53.0); Hemoglobin 9.4 g/dL (13.5-17.5); Lymphocytes # (auto) 0.7 10 ^3/uL (0.4-5.4); Lymphocytes % (auto) 22.6 % (10.0-50.0); Mean Corpuscular Hemoglobin 28.3 pg (28.0-32.0); Mean Corpuscular Hgb Conc. 32.9 g/dL (32.0-36.0); Mean Corpuscular Volume 86.1 fL (80.0-100.0); Monocytes # (auto) 0.2 10 ^3/uL (0-1.3); Monocytes % (auto) 6.9 % (0.0-12.0); Neutrophils # (auto) 1.8 10 ^3/uL (1.6-8.6); Neutrophils % (auto) 63.5 % (37.0-80.0); Nucleated Red Blood Cells % 0.1 %; Red Blood Cells 3.32 10^6/uL (4.5-5.90); Red Cell Distribution Width 16.3 % (11.8-14.3); White Blood Cell 2.9 10^3/uL (4.4-10.8)
[2022-04-03 07:39] LABS: Calcium 8.1 mg/dL (8.5-10.1); Magnesium 2.6 mg/dL (1.6-2.6); Potassium 5.4 mmol/L (3.5-5.1)
[2022-04-03 07:41] LABS: BUN/Creatinine Ratio 4.6
[2022-04-03 09:00] VITALS: BP 137/75
[2022-04-03] MEDS ORDERED: LISINOPRIL 20 MG TAB PO SCH (10:00)
[2022-04-03] MEDS: ASPirin-EC 81 mg tab PO SCH (10:14)
[2022-04-03] MEDS: FOLIC ACID 1 MG TAB PO SCH (10:14)
[2022-04-03] MEDS: hydrALAZINE HCL 25 MG TAB PO SCH (10:14)
[2022-04-03] MEDS: NIFEdipine ER 30 MG TAB PO SCH (10:15)
[2022-04-03] MEDS: ATENOLOL 50 MG TAB PO SCH (10:15)
[2022-04-03] MEDS: HEPARIN SODIUM (PORCINE) 5000 UNITS/ML 1ML VIAL SC SCH (10:15)
[2022-04-03] MEDS: cloNIDine HCL 0.1 MG TAB PO SCH (10:26)
[2022-04-03] MEDS ORDERED: SODIUM ZIRCONIUM CYCL 10 GM PAK PO ONE (10:30)
[2022-04-03] MEDS ORDERED: HYDR25TA87 PO (11:23)
[2022-04-03] MEDS ORDERED: ATE50T PO (11:23)
[2022-04-03] MEDS ORDERED: LISI20TA28 PO (11:23)
[2022-04-03] MEDS ORDERED: CLON0.1T PO (11:23)
[2022-04-03] MEDS ORDERED: NIFE1TAB31 PO (11:23)
[2022-04-03] MEDS ORDERED: SODIUM CHL 0.9% 1000 ML BAG XX ONE (12:45)
[2022-04-03 13:00] VITALS: BP 157/80
[2022-04-03 17:00] VITALS: BP 156/63
[2022-04-03 17:49] VITALS: BP 149/75
== END 2022-04-03 18:45 | disposition home or self-care (01) | DRG 137 ==
LOC: EDBD 14:54 → ER 14:54 → EDUNIT# 14:54 → TELE 21:20 → UNDOADMIN 21:20 → TELE-EAST 23:30 → TELE 23:30 → TELE-EAST 03-27 00:37 → TELE-CENTR 03-31 16:49
PROVIDERS: ADMIT Hospitalist; ATTEND Internal Medicine
PROC: 5A1D70Z Performance of Urinary Filtration, Intermittent, Less than 6 Hours Per Day (ICD-10-PCS; 2022-03-28)
PROC: 5A1D70Z Performance of Urinary Filtration, Intermittent, Less than 6 Hours Per Day (ICD-10-PCS; 2022-03-30)
PROC: 5A1D70Z Performance of Urinary Filtration, Intermittent, Less than 6 Hours Per Day (ICD-10-PCS; 2022-04-01)
PROC: 5A1D70Z Performance of Urinary Filtration, Intermittent, Less than 6 Hours Per Day (ICD-10-PCS; principal; 2022-04-03)
DX: U07.1 COVID-19 (principal); J96.01 Acute respiratory failure with hypoxia; J12.82 Pneumonia due to coronavirus disease 2019; D61.818 Other pancytopenia; I12.0 Hypertensive chronic kidney disease with stage 5 chronic kidney disease or end stage renal disease; E11.22 Type 2 diabetes mellitus with diabetic chronic kidney disease; N18.6 End stage renal disease; E78.5 Hyperlipidemia, unspecified; E87.70 Fluid overload, unspecified; F17.210 Nicotine dependence, cigarettes, uncomplicated; I16.0 Hypertensive urgency; Z79.4 Long term (current) use of insulin; Z82.49 Family history of ischemic heart disease and other diseases of the circulatory system; Z83.3 Family history of diabetes mellitus; Z86.711 Personal history of pulmonary embolism; Z91.19 Patient's noncompliance with other medical treatment and regimen; Z99.2 Dependence on renal dialysis
CPT/HCPCS: 36415; 71045; 80048; 80053; 80202; 82962; 83605; 83735; 84484; 85007; 85014; 85018; 85025; 85027; 85652; 86141; 87040; 87340; 90935; 93005; 93306; 96365; 96367; 96375; 99291; G0378; J0696; J1815